=== PATIENT | female | born 1985 | race Caucasian/White ===

== ENCOUNTER 2017-10-07 06:53 | Day surgery (SDC) | payer MEDICAID, SELFPAY ==
[2017-10-02 11:18] LABS: Hematocrit 41.6 % (37-47); Hemoglobin 13.5 g/dl (12.0-15.0); Mean Corp Hgb Conc 32.5 g/gl (32-36); Mean Corpuscular Hgb 30.4 pg (27.0-32.0); Mean Corpuscular Volume 93.7 fL (81-99); Platelet Count 234 K/mm3 (150-450); RBC Distribution Width CV 12.8 % (11.6-14.6); RBC Distribution Width SD 43.7 fl (35.1-43.9); Red Blood Count 4.44 M/mm3 (4.2-5.4); White Blood Count 5.7 K/mm3 (4.4-11.0)
[2017-10-02 11:21] LABS: Scan Indicated on CBC? Y/N NO
[2017-10-02 11:28] LABS: Prothrombin Time (Protime)PT. 13.5 SECONDS (11.7-14.9)
[2017-10-02 11:29] LABS: Partial Thromboplast Time 28.7 Seconds (24.1-36.2)
[2017-10-02 12:23] LABS: Pregnancy, Serum, hCG Quali. NEGATIVE Negative (0-9 Nonpreg)
--- NOTE | 2017-10-06 17:16 | HP.PCM_ITS ---
History and Physical Date of Admission: 10/07/17 Surgical History and Physical Kelly Rodriguez, a 31 year old female 3 0 1 0 3, presents for L/S BTO with filsche clips and distal bilateral salpingectomy on October 07, 2017 at 8;30. -- Desires Permanent Sterilization -- She has considered this form of control for quite some time. MEDICATIONS HISTORY: Patient is also takin. No Meds ALLERGIES: NKA Infections - chicken pox Illnesses - ADHD, anxiety/depression Accidents - no injuries of consequence Hospitalizations - Childbirth Review of Systems: GENERAL - Denies fever, or chills SKIN - Denies skin changes EYES - Denies visual changes EARS - Denies difficulty hearing NOSE - Denies nasal congestion or bleeding MOUTH - Denies sore throat or difficulty swallowing NECK - Denies pain or swelling RESPIRATORY - Denies shortness of breath or wheezing CARDIOVASCULAR - Denies palpitations or chest pain GASTROINTESTINAL - Denies nausea, vomiting, diarrhea, constipation GENITOURINARY - Denies dysuria, frequency of urination, incontinence of urine MUSCULOSKELETAL - Denies joint or muscle pain NEUROLOGICAL - Denies localized numbness or weakness PSYCHIATRIC - Denies depression or anxiety ENDOCRINE - Denies heat or cold intolerance, weight loss or gain HEMATO-IMMUNOLOGIC - Denies excesive bleeding with cuts SOCIAL HISTORY: Alcohol Use - denies drinking Smoking - used to smoke but quit and quit 2014 Diet - no special diet Lifestyle - single and lives with FOB Exercise - active work Seat Belt Use - always 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 Sister: Breast CA. MENSTRUAL HISTORY: LMP Known?- DefiniteAmount/Duration - 3-4 days, Regularity - Regular, Frequency - 28 days, LMP - 09/23/17, Age Onset Menarche - 14 PAST PREGNANCIES: Total Pregnancies - 4; Full Term Pregnancies - 3; Premature - 0; Abortions, Induced - 1; Abortions, Spontaneous - 0; Ectopics - 0; Multiple Births - 0; Living Children - 3 SURGICAL HISTORY: 1. 01/09/2010 gallbladder PHYSICAL EXAM BP- 106/68 Sitting, Right arm, regular cuff Weight- 134.68766 lbs Height- 66.00 inch BMI:21.67 CONSTITUTIONAL - NAD, well nourished, and well developed SKIN - No rash, lesions, or ulcers HEENT - Normocephalic, PERRLA, EOMI LUNGS - CTA x2 without wheezes, crackles or rales CARDIAC - Regular rate and rhythm without rubs, murmurs, or gallops ABDOMEN - Without hepatosplenomegaly, distention, masses, rebound, or guarding; normal bowel sounds; no hernias EXTREMITIES - No edema or calf tenderness NEUROLOGICAL - Cranial nerves II-XII grossly intact PSYCHIATRIC - A and O to time, place, person, mood and affect External Genitial Vagina - non-tender without lesions and Multiple lesions of vulva c/w HSV; culture done Urethra/Urethral Meatus - non-tender Bladder - non-tender Vagina - vaginal laguerre are pink and moist without loss of rugae and no evidence of atropy Cervix - without cervical motion tenderness and has normal size and features without evident lesions Uterus - multiparous size 6 cm & wt 75-125 g and unable to palpate fundus Adnexa - clear without massess or tenderness Pap - deferred and GC/Chlamydia cultures done ASSESSMENT/PLAN: 1. General Counseling On Initiation Of Other Contraceptive Measures Discussed permanent sterilization options including LST versus ESSURE. Desires L/S tubal. Plan BTO with filsche clips and distal bilateral salpingectomy. Discussed RBAs and all questions answered.
[2017-10-07 07:10] VITALS: BP 114/76; PULSE 74; RESP 16; TEMP 36.9; O2SAT 100; BMI 25.0
[2017-10-07 07:14] LABS: Internal QC Validated? YES +Cl - CLEAR BKGD; Pregnancy, Urine Negative Negative
--- NOTE | 2017-10-07 08:01 | PCM.OP.BLANK ---
Operative Report Date of Procedure: 10/07/17 Surgeon: Edwin Jurado MD, FACOG Tank [employer] Gauger: TOMASZ Cuenca Anesthesia: Michael Abbott MD Type of Anesthesia: General Endotracheal Pre-Op Diagnosis: Desires Permanent Sterilization Postoperative Diagnosis: Desires Permanent sterilization Procedure: Bilateral Tubal Occlusion With Filshie Clips and Bilateral Distal Salpingectomy Findings: 8 cm uterus with normal appearing fallopian tubes and ovaries Indications: This is a 31 year old patient who has the above diagnosis. She has considered sterilization for quite some time. She is aware of the permanent nature of the procedure, the failure rate of 1-2%, and the availability of other nonpermanent control options. All questions were answered to consider the patient well-informed. Procedure: The patient was taken to the operating room where after induction of general anesthesia, she was placed in the dorsolithotomy position and prepped and draped in the usual sterile fashion. The bladder was drained of approximately 50 cc of clear yellow urine with a catheter. Attention was turned toward the laparoscopic portion of the procedure. Approximately 13 cc of half percent ropivacaine was injected subumbilically, suprapubically and midway between. A 5 mm bladeless trocar was placed subumbilically and intraperitoneal placement confirmed. After CO2 insufflation was complete, a 7/8 mm bladeless trocar was introduced suprapubically. The above findings were noted. An alligator grasper port was then placed midway between these 2 ports for tubal manipulation. Each fallopian tube was identified to its fimbriated end and an Enseal device was used to divide the mesosalpinx leaving approximately 1 cm stump of fallopian tube on each side. Filshie clips were placed on the stump of each fallopian tube. It was necessary to place a second Filshie clip on the left tube due to incomplete occlusion by the first Filshie clip. The peritoneal cavity and upper abdomen were examined and noted to be normal. Photographs were taken. Laparoscopic instruments with as much CO2 gas as possible were removed and incisions were closed with interrupted 4-0 Monocryl suture. Steri-Strips placed across the incision. Patient tolerated procedure well was taken to recovery room in satisfactory condition. Sponge instrument and needle counts were all reportedly correct. Estimated blood loss for the case was minimal. Specimens to pathology was bilateral tubes.
--- NOTE | 2017-10-07 08:01 | PCM.DC.TUB ---
Discharge Diet: No Restrictions Discharge Activity: Return to Normal Activity, May Drive - when you are no longer taking pain/narcotic medicines., May Shower, May Take a Tub Bath - in 7 days. May resume sexual activity in: 2 weeks Additional Activity Instructions:: Ambulate often the next week after surgery. Nothing in the vagina for 5 days. Call your doctor if your incision/area has: Continuous Slow Oozing, Sudden Increased Bleeding, Increased Pain/ Swelling, Increased Redness, Foul Smelling Discharge Call your doctor if you observe: Fever of 101 or Higher, Inability to urinate, Inability to have a bowel movement, Using more than one pad per hour Allergies/Adverse Reactions: Allergies No Known Allergies Allergy (Verified 09/30/17 11:10) Medications to take at Discharge Hydrocodone/Acetaminophen [Prospect 5-325 Tablet] 1 ea PO Q6H PRN PRN 7 Days #10 tab 10/07/17 The following prescriptions were given: Hydrocodone/Acetaminophen [Prospect 5-325 Tablet] 1 ea PO Q6H PRN PRN 7 Days #10 tab PRN Reason: Severe Pain (-12/18) Primary Care Physician: Care Physician,No Primary [Primary Care Provider] - Test Results: Test results from this visit will be discussed in further detail at your follow-up appointment, if applicable. Please Follow Up With: Edwin Jurado MD - [phone] When: 2-3 Weeks
--- NOTE | 2017-10-07 08:30 | FALS_PTH ---
PATIENT: JETHRO ANTOINE LOC: [facility] – [place] U#:[id number] AGE/SX: 31/F ROOM: RE10/07/[address]: Dr. Edwin Jurado MD : 1985 BED: DIS: 10/07/2017 SPEC #: [id number] RECD: 10/07/17 09:11 STATUS: CANDE GRAEME #: [id number] DAVION: 10/07/17 08:[address]: Edwin Jurado DEPT: SURGICAL PATHOLOGY RECD BY: Nicholas Valladares ENTERED: 10/07/17 09:49 SP TYPE: FALL TUBES OTHR DR: No Primary Care Phys Tissues: Fallopian tube Procedures: Surgery Specimen Level II HEADER OPERATION: laparoscopic, bilateral tubal occlusion, Filshie clips PRE-OP DIAGNOSIS: Desired sterilization TISSUE SUBMITTED: Bilateral fallopian tubes MICROSCOPIC DIAGNOSIS Bilateral fallopian tubes, salpingectomy: Bilateral fallopian tubes including fimbrial ends, no pathologic diagnosis. SJ:joel 10/08/17 MICROSCOPIC DESCRIPTION Slides are reviewed. GROSS DESCRIPTION Received is one container labeled with the patient's name and designated bilateral fallopian tubes. The specimen consists of bilateral fallopian tubes including fimbrial ends. One of the fallopian tubes is intact and measures 5.5 cm in length and up to 1 cm in diameter. The fimbrial end is identified. Sections reveal unremarkable cut surfaces. The second fallopian is received in multiple pieces. The two tubular pieces consisting of proximal end measures 3 cm in length and 0.5 cm in diameter and 2 cm in length and 0.6 cm in diameter. The fimbrial end measures 2 x 1.5 x 0.5 cm. Also present in the container is a piece of dewitt soft tissue measuring 2 x 0.5 x 0.3 cm. Cordwainer sections are submitted in two cassettes as follows: 1 ? intact fallopian tube, 2 ? second fallopian tube received in multiple pieces. / SJ:joel 10/07/17 TC:4 CPT: 49096 x2
[2017-10-07 08:48] VITALS: BP 113/82; BP 114/76; PULSE 68; RESP 16; TEMP 36.5; O2SAT 100
[2017-10-07 09:00] VITALS: BP 108/73; BP 114/76; PULSE 63; RESP 16; O2SAT 94
[2017-10-07 09:15] VITALS: BP 112/80; BP 114/76; PULSE 59; RESP 16; O2SAT 97
[2017-10-07 09:30] VITALS: BP 112/77; BP 114/76; PULSE 60; RESP 16; TEMP 36.8; O2SAT 97
[2017-10-07] MEDS: HYDROcodone Bitartrate/Apap 5/325 Tablet PO (10:16)
[2017-10-07 10:51] VITALS: BP 114/76; BP 94/57; PULSE 61; RESP 16; TEMP 36.9; O2SAT 96
== END 2017-10-07 10:54 | disposition home or self-care (01) ==
LOC: SDC 06:54 → AC 06:54
PROVIDERS: Anesthesiology; Visit Provider Obstetrics & Gynecology
PROC: (CPT 58671; principal; 2017-10-07 08:15)
DX: Z30.2 Encounter for sterilization (principal); Z87.891 Personal history of nicotine dependence; Z76.89 Persons encountering health services in other specified circumstances
CPT/HCPCS: 58661; 36415; 81025; 84703; 85027; 85610; 85730; 86850; 86900; 88302; J7120; C1760; J2405

== ENCOUNTER 2017-11-11 06:26 | Emergency (ER) | payer SELFPAY ==
[2017-11-11 06:26] VITALS: BP 133/99; PULSE 107; RESP 20; TEMP 36.5; O2SAT 99; BMI 25.2
--- NOTE | 2017-11-11 06:35 | ED.VISSUMM ---
- ER Visit Summary Date of Service: 11/11/17 Chief Complaint: Cough, dyspnea, wheeze History of Present Illness: The patient is a 31 F 1 week history of progressive cough and dyspnea. Wheezing. Tobacco history. No asthma or COPD history. No recent travel, surgery, or immobilizations. No history of PE or DVT. Sick contacts or children similar symptoms. States use her child's nebulizer with improved wheezing 30 minutes prior to arrival. Concerned due to worsening symptoms. No chest pains. Physical Examination: General: Alert and oriented ?3, no acute distress HEENT: Normocephalic, atraumatic. Moist mucosa membranes Neck: supple, nontender. Cardiovascular: Regular rate 96 and rhythm, no murmurs Respiratory: Normal breath sounds, symmetric, no distress Abdomen: Soft, nontender, nondistended Extremities: Nontender, no edema, pulses intact ?4 Neuro: no focal neurological deficits. Test Results: [] Emergency Department Course and Treatment: Patient nontoxic, no respiratory distress. Heart was 107 in triage have a repeat by myself is 96. She has no PE risk factors. Stab upper respiratory symptoms with sick contacts, discussed likely bronchitis symptoms. Concerned of pneumonia. Discussed empiric therapy with Zithromax for which she agreed. Prescription for inhaler as needed. Follow-up given as an outpatient. Signs and symptoms discussed to return. Treatment Plan: [] Disposition: Discharge Impression: 1. Acute bronchitis This note was generated with Innolight dictation software. It may contain incorrect words, spelling, and punctuation that were not noted in review of the chart prior to signing ED Disposition - Plan for ED Patient: Disposition: Home or Assisted Living Chief Complaint: Shortness of Breath Diagnosis: Bronchitis Instructions: ED Upper Resp Infec Abx Tx Prescriptions: Albuterol Inhaler [Ventolin Hfa] 1 puff INHALATION Q4H PRN PRN #1 inhaler PRN Reason: Wheezing Azithromycin [Zithromax] 250 mg PO DAILY #4 tablet Referrals: Care Physician,No Primary [Primary Care Provider] - Alex Wade MD [NON-STAFF] - 5-7 Days
[2017-11-11] MEDS: Azithromycin 250 MG Tablet 500 MG PO (06:47)
--- NOTE | 2017-11-12 11:07 | CM.ED ---
ED CALLBACK: Follow-up call placed to patient with no answer. Voicemail left with return contact information.
== END 2017-11-11 07:11 | disposition home or self-care (01) ==
LOC: ED 07:05
PROVIDERS: Emergency Provider Emergency Medicine
DX: J20.9 Acute bronchitis, unspecified (principal); Z72.0 Tobacco use
CPT/HCPCS: 99282

== ENCOUNTER 2017-11-13 17:48 | Emergency (ER) | payer SELFPAY ==
[2017-11-13] VITALS (7 sets, daily range): BP systolic 105–143; BP diastolic 79–83; PULSE 88–111; RESP 15–21; TEMP 37.4; O2SAT 96–100; BMI 25.9
--- NOTE | 2017-11-13 18:06 | EKG12_ITS ---
Test Reason : SPB Blood Pressure : / mmHG Vent. Rate : 092 BPM Atrial Rate : 092 BPM P-R Int : 096 ms QRS Dur : 096 ms QT Int : 360 ms P-R-T Axes : 055 068 037 degrees QTc Int : 445 ms Sinus rhythm with short SC Incomplete right bundle branch block Borderline ECG Confirmed by VICTOR MANUEL KATE ([id number]), editor book ANDRY RENAE ([id number]) on 11/19/2017 1:39:33 PM Referred By: HALEY Confirmed By:VICTOR MANUEL KATE
[2017-11-13] MEDS: Ipratropium/Albuterol Sulfate 3 ML AMPUL.NEB INHALATION (18:21)
[2017-11-13] MEDS: Ondansetron 4 MG/2 ML Vial IV (18:31)
[2017-11-13] MEDS: MethylPREDNISolone 125 MG/2 ML Vial IV (18:31)
[2017-11-13] MEDS: 0.9% Normal Saline 1,000 ML 150 ML IV (18:33)
[2017-11-13 18:54] LABS: Hematocrit 41.8 % (37-47); Hemoglobin 13.8 g/dl (12.0-15.0); Mean Corpuscular Hgb 30.1 pg (27.0-32.0); Mean Corpuscular Volume 91.3 fL (81-99); POSITIVE COUNT NO; POSITIVE DIFFERENTIAL NO; POSITIVE MORPHOLOGY NO; Platelet Count 172 K/mm3 (150-450); RBC Distribution Width CV 12.7 % (11.6-14.6); RBC Distribution Width SD 42.6 fl (35.1-43.9); Red Blood Count 4.58 M/mm3 (4.2-5.4); White Blood Count 9.7 K/mm3 (4.4-11.0)
[2017-11-13 18:55] LABS: Absolute Lymphocyte Count 0.97 X10^3/ul (0.83-4.51); Absolute Neutrophil Count 8.1 X10^3/uL (2.0-7.7); Basophil# 0.02 X10^3/uL; Basophil% 0.2 % (0-1); Eosinophil# 0.06 X10^3/uL; Eosinophils% 0.6 % (0-5); Lymphocyte # 0.97 X10^3/ul (4.0); Monocyte# 0.59 X10^3/uL; Monocyte% 6.1 % (0-10); Neutrophil # 8.06 X10^3/uL (2.7-7.7)
[2017-11-13 18:57] LABS: Anion Gap 9 (5-15); BUN 11 mg/dL (7-18); BUN/Creat Ratio 15.7 RATIO (10-20); Calcium,Total 9.3 mg/dL (8.5-10.1); Chloride 97 mmol/L (98-107); EST Glomerular Filtration Rate 104 mL/min (>60); Est Glom Filt Rate - Afr Amer 126 mL/min (>60); Estimated Creatinine Clearance 92.94 ml/min; Glucose 111 mg/dL (74-106); Potassium 3.3 mmol/L (3.5-5.1); Sodium Level 133 mmol/L (136-145)
[2017-11-13] MEDS: Albuterol 2.5 MG/3 ML VIAL.NEB. INHALATION (20:37)
--- NOTE | 2017-11-13 21:07 | ED.VISSUMM ---
- ER Visit Summary Date of Service: 11/13/17 Chief Complaint: Short of breath, cough History of Present Illness: The patient is a 31 F with 10 day history of cough and congestion with shortness of breath. She has been running a fever over the past 5 days. She was seen in the ER on the third. She was started on Zithromax. Patient states she still has not noted significant improvement in her breathing. She still has fever that was up to 103 today. She also noted some nausea and vomiting that was new today. Last dose of ibuprofen was approximately 3 hours prior to evaluation here. History significant for ADHD. Patient is a smoker. She has been using her child's nebulizer treatment at home. Physical Examination: Blood pressure is 143/79, temperature 99.4, heart rate 111, respiratory rate 20, pulse ox 100% on room air. Head neck examination unremarkable. Heart is regular rate and rhythm with heart rate at 100 at the time of my exam. Lung sounds with mild wheezing in the left base. Abdomen is soft nontender. Test Results: Two-view chest x-ray shows right lower lobe infiltrate. EKG is sinus at 92 with no sign of acute ischemia. CBC was normal white count with 83% neutrophils. Chemistry studies reveal a sodium of 133, potassium 3.3. Cultures were sent. Emergency Department Course and Treatment: Patient was initially given Solu-Medrol, DuoNeb treatment, and Zofran. On repeat evaluation she was feeling overall improved, but had started to note some tightness in her lungs again. She is given an additional albuterol treatment. At this time respiratory rate is improved. O2 sats have remained in the mid to upper 90s. Lung sounds reveal improved air movement throughout. She be treated with Levaquin at home along with prednisone and Zofran. If she worsens in any way she is to return for potential admission and IV antibiotics. Treatment Plan: [] Disposition: Discharge Impression: Pneumonia This note was generated with Zigmo dictation software. It may contain incorrect words, spelling, and punctuation that were not noted in review of the chart prior to signing ED Disposition - Plan for ED Patient: Chief Complaint: Shortness of Breath Referrals: Care Physician,No Primary [Primary Care Provider] -
--- NOTE | 2017-11-13 21:10 | ED.DCSUM_ITS ---
- ER Visit Summary Date of Service: 11/13/17 Chief Complaint: Short of breath, cough History of Present Illness: The patient is a 31 F with 10 day history of cough and congestion with shortness of breath. She has been running a fever over the past 5 days. She was seen in the ER on the third. She was started on Zithromax. Patient states she still has not noted significant improvement in her breathing. She still has fever that was up to 103 today. She also noted some nausea and vomiting that was new today. Last dose of ibuprofen was approximately 3 hours prior to evaluation here. History significant for ADHD. Patient is a smoker. She has been using her child's nebulizer treatment at home. Physical Examination: Blood pressure is 143/79, temperature 99.4, heart rate 111 , respiratory rate 20, pulse ox 100% on room air. Head neck examination unremarkable. Heart is regular rate and rhythm with heart rate at 100 at the time of my exam. Lung sounds with mild wheezing in the left base. Abdomen is soft nontender. Test Results: Two-view chest x-ray shows right lower lobe infiltrate. EKG is sinus at 92 with no sign of acute ischemia. CBC was normal white count with 83 % neutrophils. Chemistry studies reveal a sodium of 133, potassium 3.3. Cultures were sent. Emergency Department Course and Treatment: Patient was initially given Solu- Medrol, DuoNeb treatment, and Zofran. On repeat evaluation she was feeling overall improved, but had started to note some tightness in her lungs again. She is given an additional albuterol treatment. At this time respiratory rate is improved. O2 sats have remained in the mid to upper 90s. Lung sounds reveal improved air movement throughout. She be treated with Levaquin at home along with prednisone and Zofran. If she worsens in any way she is to return for potential admission and IV antibiotics. Treatment Plan: [] Disposition: Discharge Impression: Pneumonia This note was generated with Xelor [employer] dictation software. It may contain incorrect words, spelling, and punctuation that were not noted in review of the chart prior to signing ED Disposition - Plan for ED Patient: Chief Complaint: Shortness of Breath Referrals: Care Physician,No Primary [Primary Care Provider] -
--- NOTE | 2017-11-13 21:10 | ED.DEP ---
ED Disposition - Plan for ED Patient: Disposition: Home or Assisted Living Chief Complaint: Shortness of Breath Instructions: ED Pneumonia Adult Prescriptions: proMETHazine tablet [Phenergan] 0.5 - 1 tab PO Q6H PRN PRN #10 tablet PRN Reason: Nausea Levofloxacin [Levaquin] 750 mg PO DAILY #4 tablet Prednisone [Deltasone] 40 mg PO DAILY #10 tablet Referrals: Kasandra Lovelace MD [COURTESY STAFF PHYSICIAN] - As Needed
[2017-11-13] MEDS: levoFLOXacin 750 MG Tablet PO (21:11)
--- NOTE | 2017-11-13 21:21 | ED.RN ---
PT GIVEN WRITTEN AND VERBAL DISCHARGE INSTRUCTIONS AND VERBALIZES UNDERSTANDING. IV D/C COVERED WITH 2X2 GAUZE DRESSING. PT DRESSES SELF AND AMBULATES OUT OF DEPT BY SELF.
== END 2017-11-13 21:22 | disposition home or self-care (01) ==
PROVIDERS: Emergency Provider Emergency Medicine
DX: J18.9 Pneumonia, unspecified organism (principal); F17.200 Nicotine dependence, unspecified, uncomplicated
CPT/HCPCS: 71046; 80048; 85025; 87040; 93005; 94640; 96361; 96374; 96375; 99284; J7030; J7040; A4216; J2405

== ENCOUNTER 2018-08-12 11:19 | Observation (INO) | payer MEDICAID, SELFPAY ==
[2018-08-12] VITALS (9 sets, daily range): BP systolic 97–139; BP diastolic 47–80; PULSE 48–72; RESP 16–19; TEMP 36.3–37; O2SAT 99–100; BMI 23.8; BMI 25.1
[2018-08-12] MEDS: hydrOXYzine PAM 25 MG Capsule PO (12:05)
[2018-08-12] MEDS: proMETHazine 25 MG/ML Syringe 12.5 MG IV (12:06)
[2018-08-12] MEDS: 0.9% Normal Saline 1,000 ML 1000 ML IV (12:06)
--- NOTE | 2018-08-12 12:17 | ED.VISSUMM ---
- ER Visit Summary Date of Service: 08/12/18 Chief Complaint: [Request for detox] History of Present Illness: The patient is a 32 F [presents the emergency department request for detox from narcotics and benzodiazepines. Patient states that she last used about 2 days ago. Patient does admit to heroin as well as methamphetamines. Patient complaining of sweats and nausea and diarrhea. Patient feels very anxious and restless. She denies recent illness otherwise.] Physical Examination: [HEENT-PERRLA, EOMI. Cranial nerves II through XII grossly intact. TMs clear. Mucous membranes moist. No adenopathy. Cardiovascular-regular rate and rhythm without murmur or ectopy Lungs-clear to auscultation, chest wall stable without crepitus or subcu emphysema Abdomen-normoactive bowel sounds, soft, nontender, no rebound or rigidity, no peritoneal signs. Extremities-intact ?4, normal range of motion, normal pulses, atraumatic] Test Results: [hCG serum and urine tox screen ordered and pending.] Emergency Department Course and Treatment: Patient was medicated with Vistaril and Phenergan. She was ordered a liter normal same fluid bolus.] Treatment Plan: [Patient was evaluated by flako bosch and she meets criteria for admission at this point. Will discuss case with hospitalist for admission.] Disposition: Admit] Impression: [Narcotic withdrawal Benzodiazepine withdrawal] This note was generated with tvCompass dictation software. It may contain incorrect words, spelling, and punctuation that were not noted in review of the chart prior to signing ED Disposition - Plan for ED Patient: Referrals: Care Physician,No Primary [Primary Care Provider] -
[2018-08-12 12:24] LABS: Internal QC Validated? YES +Cl - CLEAR BKGD; Pregnancy, Serum, hCG Quali. NEGATIVE Negative
[2018-08-12 12:28] LABS: Amphetamine Urine VISTA POSITIVE (<1000 ng/mL); Barbiturate Urine VISTA NEGATIVE (< 200 ng/mL); Benzodiazepine Urine VISTA POSITIVE (< 200 ng/mL); Cocaine Urine VISTA POSITIVE (< 300 ng/mL); Ecstacy Urine VISTA POSITIVE (< 500 ng/mL); Methadone Urine VISTA NEGATIVE (< 300 ng/mL); PCP Urine VISTA NEGATIVE (< 25 ng/mL); THC Urine VISTA NEGATIVE (< 50 ng/mL); Vista UDS pH Range 5
[2018-08-12] MEDS: Ibuprofen 600 MG Tablet PO (12:46)
--- NOTE | 2018-08-12 12:59 | HP.PCM_ITS ---
Problem List (1) Opioid withdrawal delirium, acute, hyperactive Status: Acute (2) Tobacco dependence Status: Chronic (3) ADHD (attention deficit hyperactivity disorder) Status: Chronic (4) Back pain Status: Chronic History of Present Illness Date of Admission: 08/12/18 Chief Complaint: Restlessness The patient is a 32 year old F with past medical history segment for ADHD, depression with anxiety, polysubstance abuse including oral narcotics, methamphetamine who presents with restlessness. Patient reports daily use of p.o. codon as well as Xanax. He also admitted to amphetamine use. Patient apparently called [facility] wanting to go to medical stabilization. Patient was referred to the emergency department from where patient was admitted to a regular nursing floor for medical stabilization. On further questioning patient admitted to abdominal cramps. Nausea but no vomiting. Also did complain of extreme anxiety as well as restless legs. 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 Dyspnea Respiratory: Denies: Cough, Shortness of breath at rest, Shortness of breath upon exertion, Sputum production Gastrointestinal: Reports: Abdominal Pain, Nausea Genitourinary: Denies: Dysuria, Frequency, Hematuria, Urgency Gynecological: Denies: Breast symptoms Musculoskeletal: Reports: Leg Pain, Muscle pain Skin: Denies: Rash Neurological: Denies: Balance problems, Seizures Psychiatric: Reports: Anxiety, Depression VTE Information - Inpt Only VTE Present on Admission: No Reason prophylaxis not ordered:: Treatment Not Indicated Patient Problems: Active and Suspected Problems Opioid withdrawal delirium, acute, hyperactive (Acute) Objective: GENERAL: Appears restless HEENT: Atraumatic; moist oral mucosa EYES; Anicteric, Normal Conjunctiva NECK; supple, normal thyroid, RESPIRATORY: Diminished to auscultation bilaterally, CARDIOVASCULAR: Regular S1 S2, GI: soft, non-tender, normoactive bowel sounds, : No Renal angle tenderness; EXTREMITIES: No edema, no clubbing, . MUSCULOSKELETAL: No Joint Tenderness; NEURO: Awake; no lateralizing signs. SKIN: No Rash PSYCH; anxious - Physical Exam Vital Signs Temp Pulse Resp BP Pulse Ox 98.6 F 65 19 H 139/74 H 99 08/12/18 11:20 08/12/18 11:20 08/12/18 11:20 08/12/18 11:20 08/12/18 11:20 Weight: 58.967 kg Body Mass Index (BMI) 23.8 Laboratory Tests Past 24 Hrs 08/12/18 08/12/18 12:02 12:02 Serum , Qual NEGATIVE Urine Opiates Screen POSITIVE H Urine Methadone Screen NEGATIVE Ur Barbiturates Screen NEGATIVE Ur Phencyclidine Scrn NEGATIVE Ur Amphetamines Screen POSITIVE H U Methamphetamin-MDMA POSITIVE H U Benzodiazepines Scrn POSITIVE H Urine Cocaine Screen POSITIVE H U Cannabinoids Screen NEGATIVE Ur Drug Screen Comment Assessment/Plan All Active Problems Opioid withdrawal delirium, acute, hyperactive (Acute) Sepsis (Acute) Acute pyelonephritis (Acute) Acute cystitis (Acute) She is a 32-year-old lady with history of opioid dependence presented with acute opiate withdrawal 1. Acute opiate withdrawal patient has significant symptoms. Patient has been admitted to regular nursing floor for medical stabilization using Subutex as well as tapering dose of Librium 2. Chronic opioid abuse counseled on cessation 3. Chronic benzo abuse patient was placed on Librium taper 4. ADHD 5. Depression with anxiety 6. Tobacco dependence counseled on cessation, offered nicotine patch for tobacco cravings 7. DVT prophylaxis low risk did encourage early ambulation Code Visit Inpatient E&M: 25609 Init Hosp L3
[2018-08-12] MEDS: Lactated Ringers 1,000 ML 125 ML IV (13:34)
[2018-08-12] MEDS: chlordiazePOXIDE 25 MG Capsule PO ×2 (13:35→20:13)
[2018-08-12] MEDS: cloNIDine HCl 0.1 MG Tablet PO (13:36)
[2018-08-12] MEDS: Pramipexole Di-HCl 0.25 MG Tablet PO (13:36)
[2018-08-12] MEDS: Loperamide 2 MG Capsule PO (13:36)
[2018-08-12 13:37] LABS: Absolute Lymphocyte Count 0.99 X10^3/ul (0.83-4.51); Absolute Neutrophil Count 7.4 X10^3/uL (2.0-7.7); Basophil# 0.02 X10^3/uL; Basophil% 0.2 % (0-1); Eosinophil# 0.01 X10^3/uL; Eosinophils% 0.1 % (0-5); Hematocrit 39.4 % (37-47); Hemoglobin 12.9 g/dl (12.0-15.0); Lymphocyte # 0.99 X10^3/ul (4.0); Lymphocyte % 11.4 % (19-41); Mean Corp Hgb Conc 32.7 g/gl (32-36); Mean Corpuscular Hgb 28.3 pg (27.0-32.0); Mean Corpuscular Volume 86.4 fL (81-99); Mean Platelet Vol. 9.8 fl (6.2-12.0); Monocyte# 0.29 X10^3/uL; Monocyte% 3.3 % (0-10); Neutrophil # 7.38 X10^3/uL (2.7-7.7); Neutrophil % 84.9 % (47-70); POSITIVE COUNT NO; POSITIVE DIFFERENTIAL NO; POSITIVE MORPHOLOGY NO; Platelet Count 276 K/mm3 (150-450); RBC Distribution Width CV 13.8 % (11.6-14.6); RBC Distribution Width SD 42.6 fl (35.1-43.9); Red Blood Count 4.56 M/mm3 (4.2-5.4); White Blood Count 8.7 K/mm3 (4.4-11.0)
[2018-08-12] MEDS: Buprenorphine HCl 2 MG TAB.SUBL SL ×2 (13:37→22:08)
[2018-08-12 13:56] LABS: ALB/GLOB Ratio 1.1 RATIO (0.9-2.4); AST(SGOT) 52 U/L (15-37); Alanine Aminotransfer ALT/SGPT 19 U/L (13-56); Albumin, Serum 3.7 g/dL (3.2-5.0); Alkaline Phosphatase 89 U/L (45-117); Anion Gap 7 (5-15); BUN 10 mg/dL (7-18); BUN/Creat Ratio 16.2 RATIO (10-20); Calcium,Total 8.3 mg/dL (8.5-10.1); Chloride 109 mmol/L (98-107); Creatinine, Serum 0.62 mg/dL (0.55-1.02); EST Glomerular Filtration Rate 120 mL/min (>60); Est Glom Filt Rate - Afr Amer 145 mL/min (>60); Estimated Creatinine Clearance 103.98 ml/min; Globulin 3.3 g/dL (2.2-4.2); Glucose 100 mg/dL (74-106); Lipase 86 U/L (73-393); Potassium 3.7 mmol/L (3.5-5.1); Sodium Level 141 mmol/L (136-145)
[2018-08-12 13:58] LABS: Internal QC Validated? YES +Cl - CLEAR BKGD; Pregnancy, Serum, hCG Quali. NEGATIVE Negative
[2018-08-12] MEDS: Methocarbamol 750 MG Tablet PO ×2 (14:00→22:08)
[2018-08-12] MEDS: Dicyclomine 10 MG Capsule 20 MG PO (18:27)
[2018-08-12] MEDS: Ondansetron ODT 4 MG Tablet PO (18:28)
[2018-08-12] MEDS: Acetaminophen 500 MG Tablet PO (18:28)
[2018-08-12] MEDS: hydrOXYzine PAM 25 MG Capsule 50 MG PO (18:28)
[2018-08-12] MEDS: Mag Hydrox/Al Hydrox/Simeth 30 ML UDC PO (20:39)
[2018-08-12] MEDS: Famotidine 20 MG Tablet PO (20:41)
[2018-08-12] MEDS: traZODone 50 MG Tablet PO (22:08)
[2018-08-12] MEDS: 0.9% NaCl Peripheral Flush Adult/Peds IV (22:17)
[2018-08-13] VITALS (11 sets, daily range): BP systolic 94–102; BP diastolic 54–65; PULSE 62–82; RESP 16–18; TEMP 36.2–36.8; O2SAT 98–100
[2018-08-13] MEDS: hydrOXYzine PAM 25 MG Capsule 50 MG PO ×3 (00:47→21:22)
[2018-08-13] MEDS: chlordiazePOXIDE 25 MG Capsule PO ×3 (01:55→16:31)
[2018-08-13] MEDS: Pramipexole Di-HCl 0.25 MG Tablet PO ×2 (01:55→14:23)
[2018-08-13] MEDS: Buprenorphine HCl 2 MG TAB.SUBL SL ×3 (05:59→21:21)
[2018-08-13] MEDS: Methocarbamol 750 MG Tablet PO ×3 (05:59→21:21)
--- NOTE | 2018-08-13 08:19 | PN_ITS ---
Patient Problems: Active and Suspected Problems Opioid withdrawal delirium, acute, hyperactive (Acute) Subjective: Patient is a 32-year-old lady with history of opioid dependence presented with acute opiate withdrawal admitted to regular nursing floor where patient is undergoing medical stabilization. Patient did experience significant symptoms during the evening with pain in both lower extremities as well as significant restless legs. She requested for some pain medications but was advised she could not have any and she had to stick with the program Objective: GENERAL: Appears restless HEENT: Atraumatic; moist oral mucosa EYES; Anicteric, Normal Conjunctiva NECK; supple, normal thyroid, RESPIRATORY: Diminished to auscultation bilaterally, CARDIOVASCULAR: Regular S1 S2, GI: soft, non-tender, normoactive bowel sounds, : No Renal angle tenderness; EXTREMITIES: No edema, no clubbing, . MUSCULOSKELETAL: No Joint Tenderness; NEURO: Awake; no lateralizing signs. SKIN: No Rash PSYCH; anxious Vitals/I&O's: Vital Signs Temp Pulse Resp BP Pulse Ox 97.6 F L 71 16 94/55 L 100 08/13/18 05:57 08/13/18 05:57 08/13/18 05:57 08/13/18 05:57 08/13/18 05:54 Oxygen Delivery Method Room Air Weight: 62.3 kg Body Mass Index (BMI) 25.1 Intake and Output for Last 24 Hours 08/11/18 08/12/18 08/13/18 23:59 23:59 23:59 Intake Total 1480 / 1480 700 / 700 Balance 1480 / 1480 700 / 700 Laboratory Results 08/12/18 12:02: Urine Opiates Screen POSITIVE H, Urine Methadone Screen NEGATIVE, Ur Barbiturates Screen NEGATIVE, Ur Phencyclidine Scrn NEGATIVE, Ur Amphetamines Screen POSITIVE H, U Methamphetamin-MDMA POSITIVE H, U Benzodiazepines Scrn POSITIVE H, Urine Cocaine Screen POSITIVE H, U Cannabinoids Screen NEGATIVE, Ur Drug Screen Comment 08/12/18 12:02: Serum , Qual NEGATIVE 08/12/18 13:29: WBC 8.7, RBC 4.56, Hgb 12.9, Hct 39.4, MCV 86.4, MCH 28.3, MCHC 32.7, RDW 13.8, RDW Differential 42.6, Plt Count 276, MPV 9.8, Immature Gran % (Auto) 0.100, Neut % (Auto) 84.9 H, Lymph % (Auto) 11.4 L, Ocean % (Auto) 3.3, Eos % (Auto) 0.1, Baso % (Auto) 0.2, Absolute Neuts (auto) 7.4, Absolute Lymphs (auto) 0.99, Total Counted Not Reportable 08/12/18 13:29: Sodium 141, Potassium 3.7, Chloride 109 H, Carbon Dioxide 25.0, Anion Gap 7, BUN 10, Creatinine 0.62, Estim Creat Clear Calc 103.98, Est GFR (MDRD) Af Amer 145, Est GFR (MDRD) Non-Af 120, BUN/Creatinine Ratio 16.2, Glucose 100, Calcium 8.3 L, Total Bilirubin 0.50, AST 52 H, ALT 19, Alkaline Phosphatase 89, Total Protein 7.0, Albumin 3.7, Globulin 3.3, Albumin/Globulin Ratio 1.1, Lipase 86 08/12/18 13:29: Serum , Qual NEGATIVE Current Medications Acetaminophen (Tylenol) 500 mg PO Q4H PRN PRN PRN Reason: Temp > 100.4 F Last Admin: 08/12/18 18:28 Dose: 500 mg Al Hydroxide/Mg Hydroxide (Mylanta Ii) 30 ml PO Q6H PRN PRN PRN Reason: dyspesia Last Admin: 08/12/18 20:39 Dose: 30 ml Bisacodyl (Dulcolax) 10 mg RECTAL DAILY PRN PRN Reason: Constipation Buprenorphine HCl (Buprenorphine Hcl) 4 mg SL Q8H JAY; Taper Stop: 08/15/18 17:59 Last Admin: 08/13/18 05:59 Dose: 4 mg Chlordiazepoxide (Librium) 50 mg PO Q8H JAY; Taper Stop: 08/15/18 15:59 Last Admin: 08/13/18 01:55 Dose: 50 mg Clonidine (Catapres) 0.1 mg PO Q2H PRN PRN PRN Reason: Hot/Cold Sweats or Anxiety Last Admin: 08/12/18 13:36 Dose: 0.1 mg Dicyclomine HCl (Bentyl) 20 mg PO Q6H PRN PRN PRN Reason: Abdomnial Discomfort Last Admin: 08/12/18 18:27 Dose: 20 mg Famotidine (Pepcid) 20 mg PO BID [facility] Last Admin: 08/12/18 20:41 Dose: 20 mg Hydroxyzine HCl (Vistaril Vial) 50 mg IM Q6H PRN PRN PRN Reason: Breakthrough Anxiety Hydroxyzine Pamoate (Vistaril Pamoate Capsule) 50 mg PO Q6H PRN PRN PRN Reason: Mild Anxiety Last Admin: 08/13/18 00:47 Dose: 50 mg Ibuprofen (Motrin) 600 mg PO Q8H PRN PRN PRN Reason: Mild-Moderate Pain (1-5/10) Loperamide HCl (Imodium) 2 - 4 mg PO UD PRN PRN Reason: LOOSE STOOLS Last Admin: 08/12/18 13:36 Dose: 4 mg Methocarbamol (Methocarbamol) 750 mg PO Q6H PRN PRN PRN Reason: Muscle Aches Last Admin: 08/13/18 05:59 Dose: 750 mg Nicotine (Nicoderm Cq (Pbkc)) 21 mg TRANSDERM. DAILY [facility] Last Admin: 08/12/18 20:12 Dose: 21 mg Ondansetron HCl (Zofran Odt) 4 mg PO Q6H PRN PRN PRN Reason: NAUSEA Last Admin: 08/12/18 18:28 Dose: 4 mg Pramipexole Dihydrochloride (Mirapex) 0.25 mg PO Q12H PRN PRN PRN Reason: Restless Legs Last Admin: 08/13/18 01:55 Dose: 0.25 mg Senna (Senokot) 1 tablet PO QHS PRN PRN Reason: Constipation Sodium Chloride () 5 - 15 ml IV UD PRN PRN Reason: SALINE FLUSH Last Admin: 08/12/18 22:17 Dose: 10 ml Trazodone HCl (Desyrel) 50 mg PO QHS JAY Last Admin: 08/12/18 22:08 Dose: 50 mg Medical Necessity - Tobacco Use Smoking Status: Current every day smoker Assessment/Plan All Active Problems Opioid withdrawal delirium, acute, hyperactive (Acute) Sepsis (Acute) Acute pyelonephritis (Acute) Acute cystitis (Acute) Patient is a 32-year-old lady with history of opioid dependence presented with acute opiate withdrawal 1. Acute opiate withdrawal patient has significant symptoms. Patient has been admitted to regular nursing floor for medical stabilization using Subutex as well as tapering dose of Librium 2. Chronic opioid abuse counseled on cessation 3. Chronic benzo abuse patient was placed on Librium taper 4. ADHD currently stable. 5. Depression with anxiety: Instructed to follow-up with PCP for initiation of treatment 6. Tobacco dependence counseled on cessation, offered nicotine patch for tobacco cravings 7. DVT prophylaxis low risk did encourage early ambulation Code Visit Inpatient E&M: 22753 Subs Hosp L3
[2018-08-13] MEDS: Dicyclomine 10 MG Capsule 20 MG PO ×3 (09:27→22:34)
[2018-08-13] MEDS: Ibuprofen 600 MG Tablet PO ×2 (09:27→21:21)
[2018-08-13] MEDS: Ondansetron ODT 4 MG Tablet PO ×2 (09:27→21:27)
[2018-08-13] MEDS: Famotidine 20 MG Tablet PO ×2 (09:32→21:28)
[2018-08-13] MEDS: traZODone 50 MG Tablet PO (21:28)
[2018-08-14 00:26] VITALS: BP 99/60; PULSE 64; RESP 18; TEMP 36.4; O2SAT 99
[2018-08-14 00:27] VITALS: BP 99/60; PULSE 64; RESP 18; TEMP 36.4
[2018-08-14] MEDS: chlordiazePOXIDE 25 MG Capsule PO ×3 (00:28→16:25)
[2018-08-14 06:21] VITALS: BP 98/51; PULSE 64; RESP 16; TEMP 36.6; O2SAT 99
[2018-08-14] MEDS: Buprenorphine HCl 2 MG TAB.SUBL SL ×2 (06:22→18:01)
[2018-08-14] MEDS: Famotidine 20 MG Tablet PO ×2 (08:29→21:13)
[2018-08-14] MEDS: Pramipexole Di-HCl 0.25 MG Tablet PO (08:34)
[2018-08-14] MEDS: Methocarbamol 750 MG Tablet PO ×2 (08:34→16:27)
--- NOTE | 2018-08-14 09:09 | PN_ITS ---
Patient Problems: Active and Suspected Problems Opioid withdrawal delirium, acute, hyperactive (Acute) Subjective: Patient seen symptoms significantly improved including her restless legs Objective: GENERAL: Cooperative HEENT: Atraumatic; moist oral mucosa EYES; Anicteric, Normal Conjunctiva NECK; supple, normal thyroid, RESPIRATORY: Diminished to auscultation bilaterally, CARDIOVASCULAR: Regular S1 S2, GI: soft, non-tender, normoactive bowel sounds, : No Renal angle tenderness; EXTREMITIES: No edema, no clubbing, . MUSCULOSKELETAL: No Joint Tenderness; NEURO: Awake; no lateralizing signs. SKIN: No Rash PSYCH; anxious Vitals/I&O's: Vital Signs Temp Pulse Resp BP Pulse Ox 97.8 F 64 16 98/51 L 99 08/14/18 06:21 08/14/18 06:21 08/14/18 06:21 08/14/18 06:21 08/14/18 06:21 Oxygen Delivery Method Room Air Weight: 62.3 kg Body Mass Index (BMI) 25.1 Intake and Output for Last 24 Hours 08/12/18 08/13/18 08/14/18 23:59 23:59 23:59 Intake Total 1480 / 1480 1300 / 1300 900 / 900 Balance 1480 / 1480 1300 / 1300 900 / 900 Current Medications Acetaminophen (Tylenol) 500 mg PO Q4H PRN PRN PRN Reason: Temp > 100.4 F Last Admin: 08/12/18 18:28 Dose: 500 mg Al Hydroxide/Mg Hydroxide (Mylanta Ii) 30 ml PO Q6H PRN PRN PRN Reason: dyspesia Last Admin: 08/12/18 20:39 Dose: 30 ml Bisacodyl (Dulcolax) 10 mg RECTAL DAILY PRN PRN Reason: Constipation Buprenorphine HCl (Buprenorphine Hcl) 2 mg SL Q12H JAY; Taper Stop: 08/15/18 17:59 Last Admin: 08/14/18 06:22 Dose: 2 mg Chlordiazepoxide (Librium) 50 mg PO Q8H JAY; Taper Stop: 08/15/18 15:59 Last Admin: 08/14/18 08:29 Dose: 50 mg Clonidine (Catapres) 0.1 mg PO Q2H PRN PRN PRN Reason: Hot/Cold Sweats or Anxiety Last Admin: 08/12/18 13:36 Dose: 0.1 mg Dicyclomine HCl (Bentyl) 20 mg PO Q6H PRN PRN PRN Reason: Abdomnial Discomfort Last Admin: 08/13/18 22:34 Dose: 20 mg Famotidine (Pepcid) 20 mg PO BID JAY Last Admin: 08/14/18 08:29 Dose: 20 mg Hydroxyzine HCl (Vistaril Vial) 50 mg IM Q6H PRN PRN PRN Reason: Breakthrough Anxiety Hydroxyzine Pamoate (Vistaril Pamoate Capsule) 50 mg PO Q6H PRN PRN PRN Reason: Mild Anxiety Last Admin: 08/13/18 21:22 Dose: 50 mg Ibuprofen (Motrin) 600 mg PO Q8H PRN PRN PRN Reason: Mild-Moderate Pain (1-5/10) Last Admin: 08/13/18 21:21 Dose: 600 mg Loperamide HCl (Imodium) 2 - 4 mg PO UD PRN PRN Reason: LOOSE STOOLS Last Admin: 08/12/18 13:36 Dose: 4 mg Methocarbamol (Methocarbamol) 750 mg PO Q6H PRN PRN PRN Reason: Muscle Aches Last Admin: 08/14/18 08:34 Dose: 750 mg Nicotine (Nicoderm Cq (Pbkc)) 21 mg TRANSDERM. DAILY [facility] Last Admin: 08/14/18 08:29 Dose: 21 mg Ondansetron HCl (Zofran Odt) 4 mg PO Q6H PRN PRN PRN Reason: NAUSEA Last Admin: 08/13/18 21:27 Dose: 4 mg Pramipexole Dihydrochloride (Mirapex) 0.25 mg PO Q12H PRN PRN PRN Reason: Restless Legs Last Admin: 08/14/18 08:34 Dose: 0.25 mg Senna (Senokot) 1 tablet PO QHS PRN PRN Reason: Constipation Sodium Chloride () 5 - 15 ml IV UD PRN PRN Reason: SALINE FLUSH Last Admin: 08/12/18 22:17 Dose: 10 ml Trazodone HCl (Desyrel) 50 mg PO QHS JAY Last Admin: 08/13/18 21:28 Dose: 50 mg Medical Necessity - Tobacco Use Smoking Status: Current every day smoker Assessment/Plan All Active Problems Opioid withdrawal delirium, acute, hyperactive (Acute) Sepsis (Acute) Acute pyelonephritis (Acute) Acute cystitis (Acute) Patient is a 32-year-old lady with history of opioid dependence presented with acute opiate withdrawal 1. Acute opiate withdrawal patient has significant symptoms. Patient has been admitted to regular nursing floor for medical stabilization using Subutex as well as tapering dose of Librium patient has tolerated the program well so far with plans for patient to be discharged for subsequent outpatient treatment on 08/15/2018 2. Chronic opioid abuse counseled on cessation 3. Chronic benzo abuse patient was placed on Librium taper 4. ADHD currently stable. 5. Depression with anxiety: Instructed to follow-up with PCP for initiation of treatment 6. Tobacco dependence counseled on cessation, offered nicotine patch for tobacco cravings 7. DVT prophylaxis low risk did encourage early ambulation Code Visit Inpatient E&M: 54238 Subs Hosp L2
--- NOTE | 2018-08-14 10:36 | NEWVISION ---
Patient to attend [facility] for counseling at MAT services immediately upon discharge.
[2018-08-14 12:20] VITALS: BP 103/70; PULSE 82; RESP 18; TEMP 36.5
[2018-08-14] MEDS: hydrOXYzine PAM 25 MG Capsule 50 MG PO ×2 (12:31→21:13)
[2018-08-14] MEDS: Acetaminophen 500 MG Tablet PO (12:31)
[2018-08-14] MEDS: Ondansetron ODT 4 MG Tablet PO (12:31)
[2018-08-14 16:25] VITALS: BP 97/65; PULSE 68; RESP 14; TEMP 36.7
[2018-08-14 21:05] VITALS: BP 105/60; PULSE 77; RESP 16; TEMP 36.8
[2018-08-14] MEDS: Dicyclomine 10 MG Capsule 20 MG PO (21:13)
[2018-08-14] MEDS: traZODone 50 MG Tablet PO (21:13)
[2018-08-14] MEDS: 0.9% NaCl Peripheral Flush Adult/Peds IV (21:19)
[2018-08-15 00:33] VITALS: BP 102/58; PULSE 64; RESP 14; TEMP 36.5
[2018-08-15] MEDS: chlordiazePOXIDE 25 MG Capsule PO ×2 (00:35→08:33)
[2018-08-15 05:22] VITALS: BP 100/57; PULSE 62; RESP 14; TEMP 36.4
[2018-08-15] MEDS: Buprenorphine HCl 2 MG TAB.SUBL SL (05:25)
[2018-08-15] MEDS: Ibuprofen 600 MG Tablet PO (05:33)
[2018-08-15] MEDS: Dicyclomine 10 MG Capsule 20 MG PO (05:33)
[2018-08-15] MEDS: Methocarbamol 750 MG Tablet PO (05:33)
--- NOTE | 2018-08-15 07:51 | DCINST_ITS ---
- Discharge Diagnoses Current Active Problems: Current Active and Chronic Problems Opioid withdrawal delirium, acute, hyperactive (Acute) Tobacco dependence (Chronic) You will use the following diet at home:: No restrictions Discharge Activity: May not drive while taking narcotic pain medications. Allergies/Adverse Reactions: Allergies No Known Allergies Allergy (Verified 08/12/18 11:19) Medications to take at Discharge NK 08/12/18 Primary Care Physician: Care Physician,No Primary [Primary Care Provider] - Test Results: Test results from this visit will be discussed in further detail at your follow- up appointment, if applicable. Proposed Discharge Date: 08/15/18
--- NOTE | 2018-08-15 07:51 | PCM.DC.SUM ---
Discharge Date and Diagnosis - Problem List Patient Problems: Active and Suspected Problems Opioid withdrawal delirium, acute, hyperactive (Acute) Date of Admission: 08/12/18 Date of Discharge: 08/15/18 - Primary Discharge Diagnosis Active and Suspected Problems Opioid withdrawal delirium, acute, hyperactive (Acute) - Secondary Discharge Diagnosis Chronic Problems Tobacco dependence (Chronic) Back pain (Chronic) ADHD (attention deficit hyperactivity disorder) (Chronic) Hospital Course and Treatment Operations: None Summary of Care Provided: Patient is a 32-year-old lady with history of opioid dependence presented with acute opiate withdrawal 1. Acute opiate withdrawal patient has significant symptoms. Patient has been admitted to regular nursing floor for medical stabilization using Subutex as well as tapering dose of Librium patient has tolerated the program well and discharged for subsequent outpatient treatment on 08/15/2018 2. Chronic opioid abuse counseled on cessation 3. Chronic benzo abuse patient was placed on Librium taper 4. ADHD currently stable. 5. Depression with anxiety: Instructed to follow-up with PCP for initiation of treatment 6. Tobacco dependence counseled on cessation, offered nicotine patch for tobacco cravings 7. DVT prophylaxis low risk did encourage early ambulation Patient Problems: Active and Suspected Problems Opioid withdrawal delirium, acute, hyperactive (Acute) Objective: GENERAL: Cooperative HEENT: Atraumatic; moist oral mucosa EYES; Anicteric, Normal Conjunctiva NECK; supple, normal thyroid, RESPIRATORY: Diminished to auscultation bilaterally, CARDIOVASCULAR: Regular S1 S2, GI: soft, non-tender, normoactive bowel sounds, : No Renal angle tenderness; EXTREMITIES: No edema, no clubbing, . MUSCULOSKELETAL: No Joint Tenderness; NEURO: Awake; no lateralizing signs. - Physical Exam Vital Signs Temp Pulse Resp BP Pulse Ox 97.5 F L 62 14 100/57 L 99 08/15/18 05:22 08/15/18 05:22 08/15/18 05:22 08/15/18 05:22 08/14/18 06:21 Oxygen Delivery Method Room Air Weight: 62.3 kg Body Mass Index (BMI) 25.1 Intake and Output for Last 24 Hours 08/13/18 08/14/18 08/15/18 23:59 23:59 23:59 Intake Total 1300 / 1300 1600 / 1600 632 / 632 Balance 1300 / 1300 1600 / 1600 632 / 632 Discharge Diet: No Restrictions Discharge Activity: May not drive while taking narcotic pain medications. Home Medications: Medications to take at Discharge NK 08/12/18 Primary Care Physician: Care Physician,No Primary [Primary Care Provider] - Disposition: Home Minutes spent on discharge:: 31 Patient Condition:: Stable Medical Necessity - Tobacco Use Smoking Status: Current every day smoker Tobacco Use: Cigarettes Meaningful Use Info Meaningful Use Diagnoses (Choose all that apply): None applicable Code Visit Inpatient E&M: 64429 Disch Hosp
[2018-08-15 08:30] VITALS: BP 98/59; PULSE 66; RESP 16; TEMP 36.7
== END 2018-08-15 09:20 | disposition home or self-care (01) | DRG 773 ==
LOC: ED 11:52 → MS3 12:55
PROVIDERS: Admitting Provider Internal Medicine; Emergency Provider Emergency Medicine; Referring Provider Internal Medicine; Visit Provider Internal Medicine
DX: F11.221 Opioid dependence with intoxication delirium (principal); F13.239 Sedative, hypnotic or anxiolytic dependence with withdrawal, unspecified; F90.9 Attention-deficit hyperactivity disorder, unspecified type; F15.90 Other stimulant use, unspecified, uncomplicated; M54.9 Dorsalgia, unspecified; F41.8 Other specified anxiety disorders; F17.210 Nicotine dependence, cigarettes, uncomplicated
CPT/HCPCS: 36415; 80053; 80307; 83690; 84703; 85025; 96361; 96374; 97802; 99218; 99285; 99406; J7030; J7120; A4216; G0378

== ENCOUNTER → 2019-01-09 10:54 | Outpatient (CLI) | payer MEDICAID, SELFPAY ==
[2019-01-09 10:04] VITALS: BMI 24.3
[2019-01-09 12:33] LABS: Hematocrit 43.6 % (37-47); Hemoglobin 13.9 g/dL (12.0-15.0); Mean Corp Hgb Conc 31.9 g/dL (32-36); Mean Corpuscular Hgb 29.3 pg (27.0-32.0); Mean Corpuscular Volume 91.8 fL (81-99); Mean Platelet Vol. 10.3 fl (6.2-12.0); Platelet Count 296 K/mm3 (150-450); RBC Distribution Width SD 43.4 fl (35.1-43.9); Red Blood Count 4.75 M/mm3 (4.2-5.4); White Blood Count 8.8 K/mm3 (4.4-11.0)
[2019-01-09 13:05] LABS: ALB/GLOB Ratio 1.2 RATIO (0.9-2.4); AST(SGOT) 42 U/L (15-37); Alanine Aminotransfer ALT/SGPT 18 U/L (13-56); Albumin, Serum 4.1 g/dL (3.2-5.0); Alkaline Phosphatase 85 U/L (45-117); Anion Gap 9 (5-15); BUN 14 mg/dL (7-18); BUN/Creat Ratio 20.2 RATIO (10-20); Chloride 102 mmol/L (98-107); Creatinine, Serum 0.69 mg/dL (0.55-1.02); EST Glomerular Filtration Rate 104 mL/min (>60); Est Glom Filt Rate - Afr Amer 126 mL/min (>60); Globulin 3.5 g/dL (2.2-4.2); Glucose 82 mg/dL (74-106); Potassium 4.3 mmol/L (3.5-5.1); Protein, Total 7.6 g/dL (6.4-8.2); Sodium Level 139 mmol/L (136-145); Thyroid Stim Hormone (TSH) 0.85 uIU/mL (0.358-3.74)
[2019-01-09 13:30] LABS: HIV - WCH Non-Reactive (Nonreactive); Hepatitis B Surface Antigen Non-Reactive (Nonreactive)
[2019-01-10 06:07] LABS: Hepatitis C Ab 0.1 s/co ratio (0.0-0.9)
== END ==
PROVIDERS: Visit Provider Nurse Practitioner Family
DX: F19.10 Other psychoactive substance abuse, uncomplicated (principal); F41.9 Anxiety disorder, unspecified; F32.9 Major depressive disorder, single episode, unspecified
CPT/HCPCS: 36415; 80053; 84443; 85027; 86703; 86803; 86804; 87340

== ENCOUNTER 2019-01-09 23:43 | Emergency (ER) | payer MEDICAID, SELFPAY ==
[2019-01-09 23:43] VITALS: BMI 24.3
[2019-01-09 23:44] VITALS: BP 130/75; PULSE 102; RESP 16; TEMP 36.8; O2SAT 100; BMI 24.7
--- NOTE | 2019-01-09 23:57 | ED.DCSUM_ITS ---
- ER Visit Summary Date of Service: 01/09/19 Chief Complaint: Heroin withdrawal History of Present Illness: The patient is a 33 F who states that she is going through heroin withdrawal. She is having nausea, vomiting, diarrhea. Her legs are hurting. She has been shivering throughout most of the day. She states that she is supposed to be admitted to the [facility] on Saturday for rehab. Her last use of heroin was about 48 hours ago. She uses about 1/2 g of heroin per day. She was given Seroquel and Vistaril today because she had a physical at the [facility]. Physical Examination: Vital signs reviewed. Female in mild distress due to withdrawal. HEENT exam unremarkable. Heart is regular rate and rhythm without murmurs. Lungs are clear to auscultation. Abdomen is soft with mild diffuse tenderness. There is no guarding or rebound tenderness. Extremities reveal no edema. Skin exam normal. Neurologic exam normal. Test Results: None performed Emergency Department Course and Treatment: The patient's heart rate was in the 90s when I evaluated her. I gave her his normal saline, Bentyl and Zofran. She was complaining of restless legs I did give her some Ativan. At this point I do not feel she needs any laboratory testing. No signs of dehydration. This seems to be all heroin withdrawal. She is scheduled to go to a rehab facility in 2 days. I do not feel she needs any admission criteria. I will give her some Bentyl and Phenergan to help with symptoms at home and she will continue the Seroquel and Vistaril given to her today. Treatment Plan: [] Disposition: Discharge Impression: Heroin withdrawal This note was generated with [employer] dictation software. It may contain incorrect words, spelling, and punctuation that were not noted in review of the chart prior to signing ED Disposition - Plan for ED Patient: Referrals: Care Physician,No Primary [Primary Care Provider] -
[2019-01-10] MEDS: Ondansetron 4 MG/2 ML Vial IV (00:07)
[2019-01-10] MEDS: Dicyclomine 20 MG/2 ML Vial IM (00:07)
[2019-01-10] MEDS: 0.9% Normal Saline 1,000 ML 999 ML IV (00:07)
[2019-01-10] MEDS: LORazepam 2 MG/ML Syringe 1 MG IV (01:13)
--- NOTE | 2019-01-10 01:21 | ED.DEP ---
ED Disposition - Plan for ED Patient: Disposition: Home or Assisted Living Instructions: Narcotic Withdrawal Prescriptions: Dicyclomine HCl [Bentyl] 20 mg PO TIDAC #20 cap Prescription Printed proMETHazine tablet [Phenergan] 25 mg PO Q6H PRN PRN #10 tab PRN Reason: Nausea Prescription Printed Referrals: Care Physician,No Primary [Primary Care Provider] -
== END 2019-01-10 02:07 | disposition home or self-care (01) ==
PROVIDERS: Emergency Provider Emergency Medicine
DX: F11.23 Opioid dependence with withdrawal (principal)
CPT/HCPCS: 96361; 96372; 96374; 96375; 99283; J7030; A4216; J2405

== ENCOUNTER 2019-01-10 06:10 | Emergency (ER) | payer MEDICAID, SELFPAY ==
[2019-01-09 23:44] VITALS: BMI 24.7
[2019-01-10 06:10] VITALS: BP 109/74; PULSE 92; RESP 16; TEMP 36.5; O2SAT 100; BMI 24.7
--- NOTE | 2019-01-10 06:29 | ED.VISSUMM ---
- ER Visit Summary Date of Service: 01/10/19 Chief Complaint: Nausea vomiting and diarrhea, heroin withdrawal continued History of Present Illness: The patient is a 33 F who returns to the emergency department after being discharged about 5 hours ago. She was withdrawing from heroin at that time and was discharged after receiving medications. She returns because she is still vomiting and is having the muscle cramping. She was given Zofran, fluids and Ativan at her previous visit last night. She vomited twice after that when she went home. She states that she took all the medications that were given to her including Seroquel, Vistaril, Phenergan and Bentyl. She is not feeling any better. Physical Examination: Vital signs are reviewed. HEENT exam unremarkable. Heart is regular rate and rhythm without murmurs. Lungs are clear to auscultate bilaterally. Abdomen soft nontender. No distention. Back exam is nontender. Her extremities are all diffusely tender over the arms and legs. Her neurologic exam is normal with equal strength and sensation. Test Results: None performed Emergency Department Course and Treatment: I do see that another provider ordered laboratory studies yesterday, January 09. These were all unremarkable including a CBC and CMP. I do not feel these need to be repeated as her vital signs are normal. I will give her normal saline again as well as Toradol and Phenergan. Patient will be reevaluated by the oncoming physician for disposition. Treatment Plan: [] Disposition: Pending Impression: Heroin withdrawal, nausea vomiting and diarrhea This note was generated with [employer] dictation software. It may contain incorrect words, spelling, and punctuation that were not noted in review of the chart prior to signing ED Disposition - Plan for ED Patient: Referrals: Care Physician,No Primary [Primary Care Provider] -
--- NOTE | 2019-01-10 06:31 | ED.DEP ---
ED Disposition - Plan for ED Patient: Disposition: Home or Assisted Living Instructions: Narcotic Withdrawal Referrals: Care Physician,No Primary [Primary Care Provider] -
[2019-01-10] MEDS: Ketorolac 30 MG/ML Syringe IV (06:44)
[2019-01-10] MEDS: proMETHazine 25 MG/ML Syringe 12.5 MG IV (06:44)
[2019-01-10] MEDS: 0.9% Normal Saline 1,000 ML 999 ML IV (06:44)
[2019-01-10 07:55] VITALS: BP 135/77; PULSE 84; RESP 16; O2SAT 99
== END 2019-01-10 08:03 | disposition home or self-care (01) ==
LOC: ED 06:47
PROVIDERS: Emergency Provider Emergency Medicine
DX: F11.23 Opioid dependence with withdrawal (principal); R11.2 Nausea with vomiting, unspecified; R19.7 Diarrhea, unspecified
CPT/HCPCS: 96361; 96374; 96375; 99283; J7030

== ENCOUNTER 2019-01-11 19:24 | Emergency (ER) | payer MEDICAID, SELFPAY ==
[2019-01-10 06:10] VITALS: BMI 24.7
[2019-01-11 19:24] VITALS: BP 140/95; PULSE 77; RESP 16; TEMP 36.8; O2SAT 100; BMI 25.0
[2019-01-11 20:31] LABS: Absolute Lymphocyte Count 2.25 X10^3/uL (0.83-4.51); Absolute Neutrophil Count 5.2 X10^3/uL (2.0-7.7); Basophil# 0.07 X10^3/uL; Basophil% 0.9 % (0-1); Eosinophil# 0.14 X10^3/uL; Eosinophils% 1.7 % (0-5); Hematocrit 42.3 % (37-47); Hemoglobin 13.7 g/dL (12.0-15.0); Lymphocyte # 2.25 X10^3/ul (4.0); Lymphocyte % 27.6 % (19-41); Mean Corp Hgb Conc 32.4 g/dL (32-36); Mean Corpuscular Volume 92.6 fL (81-99); Mean Platelet Vol. 9.7 fl (6.2-12.0); Monocyte# 0.53 X10^3/uL; Monocyte% 6.5 % (0-10); NRBC Flagged by Analyzer 0 % (0-5); Neutrophil # 5.15 X10^3/uL (2.7-7.7); Neutrophil % 63.1 % (47-70); Platelet Count 250 K/mm3 (150-450); RBC Distribution Width CV 12.9 % (11.6-14.6); RBC Distribution Width SD 43.9 fl (35.1-43.9); Red Blood Count 4.57 M/mm3 (4.2-5.4); White Blood Count 8.2 K/mm3 (4.4-11.0)
[2019-01-11 20:40] LABS: Internal QC Validated? YES +Cl - CLEAR BKGD; Pregnancy, Serum, hCG Quali. NEGATIVE Negative
[2019-01-11 20:43] LABS: Alcohol, Blood (Medical)-Serum < 3.0 mg/dL
[2019-01-11 20:44] LABS: Anion Gap 8 (5-15); BUN 14 mg/dL (7-18); BUN/Creat Ratio 20.6 RATIO (10-20); Calcium,Total 9.3 mg/dL (8.5-10.1); Chloride 105 mmol/L (98-107); Creatinine, Serum 0.68 mg/dL (0.55-1.02); EST Glomerular Filtration Rate 107 mL/min (>60); Est Glom Filt Rate - Afr Amer 129 mL/min (>60); Estimated Creatinine Clearance 93.94 ml/min; Glucose 79 mg/dL (74-106); Potassium 3.5 mmol/L (3.5-5.1); Sodium Level 141 mmol/L (136-145)
[2019-01-11 20:52] LABS: Amphetamine Urine VISTA POSITIVE (<1000 ng/mL); Barbiturate Urine VISTA NEGATIVE (< 200 ng/mL); Benzodiazepine Urine VISTA POSITIVE (< 200 ng/mL); Cocaine Urine VISTA NEGATIVE (< 300 ng/mL); Ecstacy Urine VISTA POSITIVE (< 500 ng/mL); Methadone Urine VISTA NEGATIVE (< 300 ng/mL); PCP Urine VISTA NEGATIVE (< 25 ng/mL); THC Urine VISTA NEGATIVE (< 50 ng/mL); Vista UDS pH Range 5
[2019-01-11 21:00] VITALS: RESP 18
--- NOTE | 2019-01-11 21:09 | ED.RN ---
CALLED CRISIS TO SEE THIS PT, MADDY IS CLINICAL REHABILITATION AIDE
--- NOTE | 2019-01-11 21:16 | ED.DCSUM_ITS ---
- ER Visit Summary Date of Service: 01/11/19 Chief Complaint: Suicidal ideation History of Present Illness: The patient is a 33 F who presents with suicidal ideation that began tonight. Patient states she got into an argument with her sister and said something that she did not mean. Patient currently denies any suicidal ideation. Patient denies any plan for suicide. Police filled out a pink slip which stated the patient threatened to kill herself earlier tonight. Patient is supposed to get treatment for heroin addiction starting tomorrow. Police report that the patient threatened to kill herself several times tonight. Police report that her sister and her father are concerned about her harming herself. Physical Examination: Vital signs are stable. Patient is afebrile. Patient is in no acute distress. Oral mucosa is pink and moist. Neck is supple. Trachea is midline. There is no JVD noted. Heart was regular rate and rhythm. Lungs are clear and equal bilaterally. Abdomen is soft. Bowel sounds are normal. There is no tenderness. There is no guarding noted. Skin is warm dry. Cranial nerves II through XII are intact. There are no focal motor or sensory deficits noted. Patient does have a flat affect and has poor eye contact. Patient denies any suicidal or homicidal ideations at this time. Test Results: CBC, basic metabolic profile, serum hCG, and serum alcohol level were all normal. Urine tox screen was positive for amphetamines, MDMA, and benzodiazepines. Emergency Department Course and Treatment: Patient was resting comfortably here in the emergency department. Crisis was in to evaluate the patient. They felt that the patient was able to go home with her father jayda. He was able to contract for safety. Patient is scheduled to go to inpatient rehab for 30 days with 180 tomorrow. Patient was instructed to follow-up with this. Patient understood and was agreeable with the plan. All questions were answered. Disposition: Discharge home with father Impression: Depression This note was generated with [employer] dictation software. It may contain incorrect words, spelling, and punctuation that were not noted in review of the chart prior to signing ED Disposition - Plan for ED Patient: Disposition: Home or Assisted Living Diagnosis: Depression Instructions: Depression, CONTRACT, No Harm Referrals: Care Physician,No Primary [Primary Care Provider] - Additional Instructions: Follow-up for your inpatient rehab tomorrow as scheduled. Follow-up with crisis counseling as discussed with the crisis counselor.
--- NOTE | 2019-01-11 21:40 | ED.RN ---
CRISIS ON SITE
--- NOTE | 2019-01-11 23:17 | ED.RN ---
PT BEING DISCHARGED HOME WITH SAFETY PLAN, VERBAL ORDER FROM DR. ZARATE TO DISCONTINUE SITTER.
[2019-01-11 23:39] VITALS: BP 131/95; PULSE 66; RESP 14
== END 2019-01-11 23:40 | disposition home or self-care (01) ==
PROVIDERS: Emergency Provider Emergency Medicine
DX: F32.9 Major depressive disorder, single episode, unspecified (principal); R45.851 Suicidal ideations; F11.20 Opioid dependence, uncomplicated
CPT/HCPCS: 36415; 80048; 80307; 80320; 84703; 85025; 99283; G0480

== ENCOUNTER 2019-01-16 10:00 | Emergency (ER) | payer MEDICAID, SELFPAY ==
[2019-01-16 10:00] VITALS: BP 123/94; PULSE 87; RESP 27; TEMP 36.7; O2SAT 100; BMI 25.3
--- NOTE | 2019-01-16 10:12 | EKG12_ITS ---
Test Reason : CP Blood Pressure : / mmHG Vent. Rate : 082 BPM Atrial Rate : 082 BPM P-R Int : 108 ms QRS Dur : 096 ms QT Int : 372 ms P-R-T Axes : 063 069 059 degrees QTc Int : 434 ms Sinus rhythm with short WA Incomplete right bundle branch block Borderline ECG Confirmed by ZOE LIPSCOMB, CHASTITY ([id number]), supervising editor trailer FRANK MENDOZA ([id number]) on 01/20/2019 2:17:02 PM Referred By: FRANK Confirmed By:CHASTITY ENRIQUEZ MD
--- NOTE | 2019-01-16 10:12 | RAD_ITS ---
STUDY: X-RAY CHEST REASON FOR EXAM: Female, 33 years old. Shortness of breath. Chest pain. TECHNIQUE: Single AP portable view of the chest. COMPARISON: Comparison is made with prior study November 13, 2017. FINDINGS: EKG electrodes are seen. The previously seen right lower lobe infiltrate as clear. Scattered calcified granulomas. There is no demonstrated pleural abnormality. Normal size heart. Normal mediastinum and kalyani. Normal visualized pulmonary arteries. Normal visualized aortic arch and descending thoracic aorta. Normal visualized thoracic spine. Normal visualized ribs, clavicles, and shoulders. There is no demonstrated abnormality of the visualized soft tissue structures of the upper abdomen. RAD/Chest 1 View (Portable) IMPRESSION: Normal x-ray examination of the chest. Electronically Signed: Alejandro Mcdaniel, at 10:38 EST , Service support ,
[2019-01-16] MEDS: Ketorolac 15 MG/ML Vial IV (10:27)
[2019-01-16] MEDS: Ondansetron 4 MG/2 ML Vial IV (10:27)
[2019-01-16] MEDS: 0.9% Normal Saline 1,000 ML 1000 ML IV (10:27)
[2019-01-16 10:37] LABS: Absolute Lymphocyte Count 1.97 X10^3/uL (0.83-4.51); Absolute Neutrophil Count 6.5 X10^3/uL (2.0-7.7); Basophil# 0.08 X10^3/uL; Basophil% 0.9 % (0-1); Eosinophil# 0.12 X10^3/uL; Eosinophils% 1.3 % (0-5); Hematocrit 45.1 % (37-47); Hemoglobin 14.6 g/dL (12.0-15.0); Internal QC Validated? YES +Cl - CLEAR BKGD; Lymphocyte # 1.97 X10^3/ul (4.0); Lymphocyte % 21.3 % (19-41); Mean Corp Hgb Conc 32.4 g/dL (32-36); Mean Corpuscular Volume 92.8 fL (81-99); Monocyte# 0.55 X10^3/uL; Monocyte% 5.9 % (0-10); NRBC Flagged by Analyzer 0 % (0-5); Neutrophil % 70.3 % (47-70); Platelet Count 259 K/mm3 (150-450); Pregnancy, Serum, hCG Quali. NEGATIVE Negative; RBC Distribution Width SD 44.9 fl (35.1-43.9); Red Blood Count 4.86 M/mm3 (4.2-5.4); White Blood Count 9.3 K/mm3 (4.4-11.0)
[2019-01-16 10:47] LABS: Mucous, Urine 0 SEEN /hpf (<or=2+); Red Blood Cells-Urine 0 SEEN /hpf (0-5)
[2019-01-16 10:51] LABS: D-Dimer Quantitative (DVT/PE) 0.47 FEU/ug/m (0.27-0.49)
[2019-01-16 10:54] LABS: ALB/GLOB Ratio 1.1 RATIO (0.9-2.4); AST(SGOT) 37 U/L (15-37); Alanine Aminotransfer ALT/SGPT 22 U/L (13-56); Albumin, Serum 3.9 g/dL (3.2-5.0); Alkaline Phosphatase 79 U/L (45-117); Anion Gap 9 (5-15); BUN 12 mg/dL (7-18); BUN/Creat Ratio 16.3 RATIO (10-20); Calcium,Total 8.8 mg/dL (8.5-10.1); Chloride 108 mmol/L (98-107); Creatinine, Serum 0.73 mg/dL (0.55-1.02); EST Glomerular Filtration Rate 98 mL/min (>60); Est Glom Filt Rate - Afr Amer 118 mL/min (>60); Globulin 3.5 g/dL (2.2-4.2); Glucose 72 mg/dL (74-106); Lipase 232 U/L (73-393); Potassium 3.6 mmol/L (3.5-5.1); Protein, Total 7.4 g/dL (6.4-8.2); Sodium Level 144 mmol/L (136-145)
[2019-01-16 10:56] LABS: Color, Urine Yellow (Yellow); Glucose, Dipstick Normal (Normal); Ketone-Dipstick Negative (Negative); Leukocyte Esterase-Dipstick 500 /ul (Negative); Nitrite-Dipstick Negative (Negative); Occult Blood-Urine Negative /ul (Negative); Protein-Dipstick Negative (Negative); Urine Bilirubin Dipstick Negative (Negative); Urine Clarity Sl. Cloudy (Clear); Urine Urobilinogen Normal (Normal)
--- NOTE | 2019-01-16 11:06 | ED.DCSUM_ITS ---
- ER Visit Summary Date of Service: 01/16/19 Chief Complaint: Chest pain History of Present Illness: The patient is a 33 F presenting with chest pain. She states this started one hour prior to arrival. She has sharp pain bilateral chest. She states she had vomiting last night. She is currently in rehab for heroin abuse. She states she had mild shortness of breath. She has abdominal cramping, nausea, vomiting. She denies diarrhea. Denies fever. Denies history of IV drug abuse. Denies other complaints. Physical Examination: Vitals are stable. Patient is afebrile. Alert no acute distress. HEENT exam is unremarkable. Neck is supple. Lungs are clear and equal bilaterally. Chest tender to palpation with no crepitus Heart is regular rate and rhythm. Abdomen is soft epigastric and suprapubic tenderness, no rebound or guarding Extremities are unremarkable. Skin is warm and dry. No rash. No focal neurologic deficit. Remainder of exam is unremarkable. Emergency Department Course and Treatment: EKG is sinus rate of 82, no acute ischemic changes. Chest x-ray shows no acute process. CBC, chemistries unremarkable. Troponin is negative. D-dimer negative. hCG negative. Urinalysis shows 25-50 white blood cells, 1+ bacteria. Urine culture was sent. She was given Keflex and a prescription for Keflex. Patient was given Zofran, Toradol IV. On reevaluation, she is resting comfortably. She declines repeat troponin. She elects to sign out AGAINST MEDICAL ADVICE. She is advised of the risks including NH and . Patient understands these risks. She will return to ED if she has any worsening complaints. She is given Dr. Gramajo metal fabrication supervisor for no doctor for follow-up. Advised return to ED for worsening complaints. Disposition: Left AGAINST MEDICAL ADVICE Impression: Chest pain, UTI This note was generated with Kickboard dictation software. It may contain incorrect words, spelling, and punctuation that were not noted in review of the chart prior to signing ED Disposition - Plan for ED Patient: Instructions: Understanding Urinary Tract Infections (UTIs), CHEST PAIN, Uncertain Cause Prescriptions: Cephalexin [Keflex] 500 mg PO Q6 #40 cap Prescription Printed Referrals: Bartolo Gramajo MD [STAFF PHYSICIAN] -
[2019-01-16 11:09] LABS: White Blood Cells 25-50 SEEN /hpf (0-5)
[2019-01-16 11:13] LABS: Bacteria 1+ /hpf (None Seen); Squamous Epithelial Cells - UA 0-5 SEEN /hpf (5-10)
[2019-01-16 12:21] VITALS: BP 124/90; PULSE 84; RESP 14; O2SAT 100
[2019-01-16] MEDS: Cephalexin 250 MG Capsule 500 MG PO (12:47)
--- NOTE | 2019-01-16 12:54 | ED.DEP ---
ED Disposition - Plan for ED Patient: Instructions: CHEST PAIN, Uncertain Cause, Understanding Urinary Tract Infections (UTIs) Prescriptions: Cephalexin [Keflex] 500 mg PO Q6 #40 capsule Referrals: Bartolo Gramajo MD [STAFF PHYSICIAN] -
[2019-01-16 13:10] VITALS: BP 118/94
== END 2019-01-16 13:12 | disposition left against medical advice (07) ==
PROVIDERS: Emergency Provider Emergency Medicine
DX: R07.9 Chest pain, unspecified (principal); N39.0 Urinary tract infection, site not specified; Z72.0 Tobacco use; Z90.49 Acquired absence of other specified parts of digestive tract
CPT/HCPCS: 71045; 80053; 81001; 83690; 84484; 84703; 85025; 85379; 87086; 87088; 93005; 96361; 96374; 96375; 99285; J7030; A4216; J2405

== ENCOUNTER 2019-03-29 07:23 | Emergency (ER) | payer MEDICAID, SELFPAY ==
[2019-03-29 07:24] VITALS: BP 118/71; PULSE 84; RESP 18; TEMP 36.6; O2SAT 98; BMI 31.1
[2019-03-29 07:55] LABS: Absolute Lymphocyte Count 1.92 X10^3/uL (0.83-4.51); Absolute Neutrophil Count 4.7 X10^3/uL (2.0-7.7); Basophil# 0.09 X10^3/uL; Eosinophil# 1.53 X10^3/uL; Eosinophils% 17.4 % (0-5); Hematocrit 40.8 % (37-47); Hemoglobin 13.4 g/dL (12.0-15.0); Lymphocyte # 1.92 X10^3/ul (4.0); Lymphocyte % 21.9 % (19-41); Mean Corp Hgb Conc 32.8 g/dL (32-36); Mean Corpuscular Hgb 30.7 pg (27.0-32.0); Mean Corpuscular Volume 93.4 fL (81-99); Mean Platelet Vol. 9.9 fl (6.2-12.0); Monocyte# 0.55 X10^3/uL; Monocyte% 6.3 % (0-10); NRBC Flagged by Analyzer 0 % (0-5); Neutrophil # 4.66 X10^3/uL (2.7-7.7); Neutrophil % 53.1 % (47-70); Platelet Count 249 K/mm3 (150-450); RBC Distribution Width CV 12.9 % (11.6-14.6); RBC Distribution Width SD 44.4 fl (35.1-43.9); Red Blood Count 4.37 M/mm3 (4.2-5.4); White Blood Count 8.8 K/mm3 (4.4-11.0)
[2019-03-29] MEDS: 0.9% Normal Saline 1,000 ML 1000 ML IV (07:59)
[2019-03-29] MEDS: Ondansetron 4 MG/2 ML Vial IV (07:59)
--- NOTE | 2019-03-29 08:00 | ED.VIS.GEN ---
History of Present Illness Chief Complaint: Abd Pain Informant: Patient Onset: Days Maximum Severity: Mild Narrative: Patient presents with right upper quadrant pain began about 4 days ago, she has a history of heroin opiate abuse snorting no history of IV drug abuse, she has been sober for about 70 days, received a Vivitrol injection day is not clear if the Vivitrol injection contributed to rate her right upper quadrant discomfort, she has a prior history for cholecystectomy she has some very mild nausea, she is eating and drinking well bowel and bladder habits been normal she has no fever no cough no other complaints Past Medical History - Allergies and Home Meds Allergies/Adverse Reactions: Allergies No Known Allergies Allergy (Verified 03/29/19 07:26) Primary Care Physician: Kitty Santana MD [Primary Care Provider] - Surgical History: cholecystectomy Smoking Status: Current every day smoker - Family History Maternal Family History: Family History (Last Updated 01/09/19 @ 10:03 by Jacki Stewart) Other Anxiety Depression Seizures Family History: Reports: No pertinent history Paternal Family History: Family History (Last Updated 01/09/19 @ 10:03 by Jacki Stewart) Other Anxiety Depression Seizures Family History: Reports: Hypertension Review of Systems General: Denies: Chills, Fever, Sweats Eyes: Denies: Visual changes - bilaterally, Diplopia ENT: Denies: Rhinorrhea, Sore throat Cardiovascular: Denies: Chest pain, Palpitations Respiratory: Denies: Dyspnea, Cough, Dyspnea on exertion Gastrointestinal: Reports: Abdominal pain, Nausea. Denies: Vomiting, Diarrhea, Melena, Hematochezia Genitourinary: Denies: Dysuria, Hematuria, Frequency Musculoskeletal: Denies: Back pain, Extremity Pain Skin: Denies: Rash, Wounds Neurological: Denies: Headache, Weakness, Numbness Physical Exam Vital Signs/Narrative: Vital Signs Temp Pulse Resp BP Pulse Ox 03/29/19 07:24 98 F 84 18 118/71 98 General: Well nourished, Well developed, No Acute Distress Head: Normocephalic, Atraumatic Eyes: Perrl, EOMI ENT: Moist mucous membranes, No rhinorrhea Neck: Supple, Nontender Cardiovascular: Regular rate, Regular rhythm, No murmurs Respiratory: No distress, CTA bilaterally, Chest nontender Abdomen: Soft, Nontender, Nondistended, Normal bowel sounds, - - Very mild pain to the right upper quadrant rebound or guarding Back: Nontender, Normal Inspection Extremities: Nontender, No edema Skin: Normal color, No rash Neurological: Alert, Oriented x3, Cranial nerves II-XII grossly intact, Normal Strength, Normal Sensation Psychological: Normal affect, Normal Mood Diagnostic/Tx/Re-eval - Medical Decision Making All the above in her complaints screening evaluation will be obtained labs CT IV fluids Toradol for pain ED Disposition - Plan for ED Patient: Referrals: Kitty Santana MD [Primary Care Provider] -
--- NOTE | 2019-03-29 08:05 | CT_ITS ---
STUDY: CT ABDOMEN AND PELVIS WITHOUT CONTRAST REASON FOR EXAM: Female, 33 years old. Right flank pain RADIATION DOSAGE (If Supplied By Facility): CTDIvol = ( 7.31 ) mGy, DLP = ( 370.72 ) mGycm TECHNIQUE: Transaxial images were obtained from the dome of the diaphragm to the symphysis pubis without oral contrast, and without intravenous contrast. Sagittal and coronal images were reconstructed. Individualized dose optimization techniques were used for this CT. COMPARISON: 02/22/2016 FINDINGS: Evaluation of the abdominal viscera is limited in the absence of intravenous contrast. The visualized lung bases are clear. The visualized portions of the heart and pericardium are within normal limits. The patient is status post cholecystectomy. The liver demonstrates an unremarkable unenhanced appearance. The spleen is normal in size. The pancreas demonstrates an unremarkable unenhanced appearance. The adrenal glands are within normal limits. There are no renal or ureteral stones. There is no hydronephrosis. Normal visualized stomach. There is no bowel obstruction or inflammation. The appendix is visualized and appears normal. The aorta is normal in caliber. There is a right adnexal cyst with a small amount of free fluid. There is no free air, fluid collection or lymphadenopathy. There are no destructive osseous lesions. CT/Abdomen/Pelvis without Cont IMPRESSION: Right adnexal cyst with a small amount of pelvic free fluid. No urinary calculi. No hydronephrosis. No bowel obstruction or inflammation. Normal appendix. Electronically Signed: Kiran Capellan, at 8:45 EST Tel , Service support ,
[2019-03-29 08:11] LABS: ALB/GLOB Ratio 1.3 RATIO (0.9-2.4); AST(SGOT) 36 U/L (15-37); Alanine Aminotransfer ALT/SGPT 19 U/L (13-56); Albumin, Serum 3.9 g/dL (3.2-5.0); Alkaline Phosphatase 82 U/L (45-117); Anion Gap 7 (5-15); BUN 16 mg/dL (7-18); BUN/Creat Ratio 19.2 RATIO (10-20); Calcium,Total 8.5 mg/dL (8.5-10.1); Chloride 108 mmol/L (98-107); Creatinine, Serum 0.84 mg/dL (0.55-1.02); EST Glomerular Filtration Rate 84 mL/min (>60); Est Glom Filt Rate - Afr Amer 102 mL/min (>60); Estimated Creatinine Clearance 72.55 ml/min; Glucose 98 mg/dL (74-106); Lipase 85 U/L (73-393); Potassium 3.6 mmol/L (3.5-5.1); Protein, Total 6.9 g/dL (6.4-8.2); Sodium Level 142 mmol/L (136-145)
[2019-03-29 08:18] LABS: Red Blood Cells-Urine 0 SEEN /hpf (0-5)
[2019-03-29 08:19] LABS: Color, Urine Yellow (Yellow); Glucose, Dipstick Normal (Normal); Ketone-Dipstick Negative (Negative); Leukocyte Esterase-Dipstick 100 /ul (Negative); Nitrite-Dipstick Negative (Negative); Occult Blood-Urine Negative /ul (Negative); Protein-Dipstick Negative (Negative); Urine Bilirubin Dipstick Negative (Negative); Urine Clarity Cloudy (Clear); Urine Urobilinogen Normal (Normal)
[2019-03-29 08:27] LABS: Bacteria 1+ /hpf (None Seen); Mucous, Urine 2+ /hpf (<or=2+); Squamous Epithelial Cells - UA 5-10 SEEN /hpf (5-10); White Blood Cells 0-5 SEEN /hpf (0-5)
[2019-03-29] MEDS: Ketorolac 30 MG/ML Syringe IV (08:28)
[2019-03-29 09:18] LABS: Internal QC Validated? YES +Cl - CLEAR BKGD; Pregnancy, Serum, hCG Quali. NEGATIVE Negative
--- NOTE | 2019-03-29 09:28 | ED.VIS.GEN ---
History of Present Illness Chief Complaint: Abd Pain Informant: Patient Past Medical History - Allergies and Home Meds Allergies/Adverse Reactions: Allergies No Known Allergies Allergy (Verified 03/29/19 07:26) Primary Care Physician: Kitty Santana MD [Primary Care Provider] - Surgical History: cholecystectomy Smoking Status: Current every day smoker - Family History Maternal Family History: Family History (Last Updated 01/09/19 @ 10:03 by Jacki Stewart) Other Anxiety Depression Seizures Family History: Reports: No pertinent history Paternal Family History: Family History (Last Updated 01/09/19 @ 10:03 by Jacki Stewart) Other Anxiety Depression Seizures Family History: Reports: Hypertension Physical Exam Vital Signs/Narrative: Vital Signs Temp Pulse Resp BP Pulse Ox 03/29/19 07:24 98 F 84 18 118/71 98 ED Disposition - Plan for ED Patient: Diagnosis: Abdominal pain Instructions: ABDOMINAL PAIN, Unknown Cause, (Female) Prescriptions: Ondansetron [Zofran Odt] 4 mg PO Q8H PRN PRN #14 tab PRN Reason: Nausea/Vomiting Prescription Printed Referrals: Kitty Santana MD [Primary Care Provider] -
[2019-03-29 09:42] VITALS: BP 100/69; PULSE 65; RESP 16; O2SAT 100
== END 2019-03-29 10:07 | disposition home or self-care (01) ==
PROVIDERS: Emergency Provider Emergency Medicine; PCP Internal Medicine
DX: R10.11 Right upper quadrant pain (principal); F17.200 Nicotine dependence, unspecified, uncomplicated; Z82.49 Family history of ischemic heart disease and other diseases of the circulatory system; Z90.49 Acquired absence of other specified parts of digestive tract; F11.10 Opioid abuse, uncomplicated
CPT/HCPCS: 36415; 74176; 80053; 81001; 83690; 84703; 85025; 96361; 96374; 96375; 99283; J7030; A4216; J2405

== ENCOUNTER 2020-12-29 14:02 | Emergency (ER) | payer MEDICAID, SELFPAY ==
[2020-12-29 14:03] VITALS: BP 147/84; PULSE 106; RESP 16; TEMP 38.6; O2SAT 100; BMI 24.8
--- NOTE | 2020-12-29 14:48 | ED.RN ---
PT DENIES PAIN, HERE D/T FREQUENCY OF URINATION.
[2020-12-29] MEDS: Ketorolac 15 MG/ML Vial IV (15:10)
[2020-12-29 15:24] LABS: Absolute Lymphocyte Count 0.58 X10^3/uL (0.83-4.51); Absolute Neutrophil Count 6.7 X10^3/uL (2.0-7.7); Basophil# 0.01 X10^3/uL; Basophil% 0.1 % (0-1); Eosinophil# 0.07 X10^3/uL; Eosinophils% 0.9 % (0-5); Hematocrit 35.3 % (37-47); Hemoglobin 11.4 g/dL (12.0-15.0); Lymphocyte # 0.58 X10^3/ul (0.83-4.51); Mean Corp Hgb Conc 32.3 g/dL (32-36); Mean Corpuscular Hgb 29.6 pg (27.0-32.0); Mean Corpuscular Volume 91.7 fL (81-99); Mean Platelet Vol. 10.2 fl (6.2-12.0); Monocyte# 0.82 X10^3/uL; NRBC Flagged by Analyzer 0 % (0-5); Neutrophil # 6.72 X10^3/uL (2.7-7.7); Neutrophil % 81.6 % (47-70); POSITIVE DIFFERENTIAL YES; Platelet Count 139 K/mm3 (150-450); RBC Distribution Width CV 12.6 % (11.6-14.6); RBC Distribution Width SD 42.2 fl (35.1-43.9); Red Blood Count 3.85 M/mm3 (4.2-5.4); White Blood Count 8.2 K/mm3 (4.4-11.0)
[2020-12-29 15:28] LABS: Differential Indicated SCAN CRITERIA MET
[2020-12-29] MEDS: Ceftriaxone 1 GM/50 ML BAG IV (15:30)
[2020-12-29 15:38] LABS: AST(SGOT) 40 U/L (15-37); Alanine Aminotransfer ALT/SGPT 14 U/L (13-56); Albumin, Serum 3.4 g/dL (3.2-5.0); Alkaline Phosphatase 67 U/L (45-117); Anion Gap 7 (5-15); BUN 9 mg/dL (7-18); BUN/Creat Ratio 15.4 RATIO (10-20); Calcium,Total 8.4 mg/dL (8.5-10.1); Chloride 101 mmol/L (98-107); Creatinine, Serum 0.58 mg/dL (0.55-1.02); EST Glomerular Filtration Rate 125 mL/min (>60); Est Glom Filt Rate - Afr Amer 152 mL/min (>60); Estimated Creatinine Clearance 108.09 ml/min; Globulin 3.3 g/dL (2.2-4.2); Glucose 97 mg/dL (74-106); Potassium 3.5 mmol/L (3.5-5.1); Protein, Total 6.7 g/dL (6.4-8.2); Sodium Level 135 mmol/L (136-145)
[2020-12-29] MEDS: Ondansetron 4 MG/2 ML Vial IV (16:24)
--- NOTE | 2020-12-29 16:28 | EX.ED.DYSGE1 ---
HPI History of Present Illness Chief Complaint: Complaint Narrative Narrative: Patient presents wit dysuria frequency and urgency as well as flank pain and fever that started yesterday she was seen at an urgent care and had a positive urinalysis. She has no upper abdominal pain no left lower abdominal pain, she does have some vomiting. She has no diarrhea or constipation. She does have a history of pyelonephritis. [facility] Medical History (Updated 12/29/20 @ 16:[address] Cuong Celeste MD) Anxiety and depression Heart murmur History of kidney stones History of seizures History of substance abuse Home Medications naltrexone microspheres 380 mg intramuscular suspension,extended release 380 mg IM Q4W 04/01/19 [History Last Taken Unknown] promethazine 12.5 mg tablet 12.5 mg PO TID PRN #20 tab 04/01/19 [Rx Last Taken Unknown] cefdinir 300 mg PO BID #20 cap 12/29/20 [Rx Last Taken Unknown] ondansetron HCl [Zofran] 4 mg PO Q8H #7 tab 12/29/20 [Rx Last Taken Unknown] Allergy/AdvReac Type Severity Reaction Status Date / Time No Known Allergies Allergy Verified 12/29/20 14:06 Family History Other Anxiety Depression Seizures Surgical History History of cholecystectomy Social History (Updated 04/06/19 @ 20:16 by Bartolo Ritter NP, ETHNOGRAPHER-C) Smoking Status: Current every day smoker tobacco type: cigarettes alcohol intake: never substance use type: former substance user what type of physical activity do you participate in: none ROS ROS ED ROS Narrative Past medical history: Reviewed Medications: Reviewed Social history: Noncontributory Review of systems: All systems negative except as indicated General: Fever as in HPI Eyes: No visual changes ENT: No upper airway congestion, normal voice Neck: No neck pain Cardiovascular: No chest pain Respiratory: No shortness of breath or cough Gastrointestinal: Flank and abdominal pain Genitourinary: Urinary symptoms as in HPI Musculoskeletal: Denies myalgias no difficulty with ambulation Skin: No rash Neurological: No memory loss, confusion or any focal weakness Psych: No recent behavioral changes Hematologic: No easy bleeding or easy bruising EXAM Physical Exam Narrative Exam Narrative: Physical exam General: Patient appears relatively comfortable. Head: Normocephalic, Atraumatic Eyes: Conjunctiva not pale ENT: Moist mucous membranes Neck: Supple, Nontender, No lymphadenopathy Cardiovascular: Regular rate, Regular rhythm Respiratory: No distress, CTA bilaterally Abdomen: Soft some suprapubic pain and CVA tenderness. Extremities: Nontender, No edema Skin: Normal color, No rash Neurological: Alert, Normal Strength, Normal Sensation Psychological: Normal affect Const Vital Signs: 12/29/20 14:03 Temperature 101.4 F H Temperature Source Oral Pulse Rate 106 H Respiratory Rate 16 Blood Pressure 147/84 H Blood Pressure Mean 105 Pulse Ox 100 Oxygen Delivery Method Room Air MDM MDM MDM Narrative Medical decision making narrative: Patient appears well, she does have pyelonephritis I gave her Rocephin in the ED I will treat her outpatient with antibiotics I believe she is stable for discharge and outpatient treatment of her pyelonephritis. Lab Data Labs: Laboratory Results - last 24 hr 12/29/20 12/29/20 15:12 15:12 WBC 8.2 RBC 3.85 L Hgb 11.4 L Hct 35.3 L MCV 91.7 MCH 29.6 MCHC 32.3 RDW Std Deviation 42.2 RDW Coeff of Luma 12.6 Plt Count 139 L MPV 10.2 Immature Gran % (Auto) 0.400 Neut % (Auto) 81.6 H Lymph % (Auto) 7.0 L [place] % (Auto) 10.0 Eos % (Auto) 0.9 Baso % (Auto) 0.1 Absolute Neuts (auto) 6.7 Absolute Lymphs (auto) 0.58 L Nucleated RBC % 0 Sodium 135 L Potassium 3.5 Chloride 101 Carbon Dioxide 27.0 Anion Gap 7 BUN 9 Creatinine 0.58 Estim Creat Clear Calc 108.09 Est GFR (MDRD) Af Amer 152 Est GFR (MDRD) Non-Af 125 BUN/Creatinine Ratio 15.4 Glucose 97 Calcium 8.4 L Total Bilirubin 0.40 AST 40 H ALT 14 Alkaline Phosphatase 67 Total Protein 6.7 Albumin 3.4 Globulin 3.3 Albumin/Globulin Ratio 1.0 Discharge Plan Triage Chief Complaint: Complaint ED Provider: Cuong Celeste Dx/Rx/DC Orders Clinical Impression: Pyelonephritis Instructions: ED Pyelonephritis, Female (Adult) Prescriptions: New cefdinir 300 mg capsule 300 mg PO BID Qty: 20 RF: 0 ondansetron HCl [Zofran] 4 mg tablet 4 mg PO Q8H Qty: 7 RF: 0 No Action Vivitrol 380 mg suspension,extended rel recon 380 mg IM Q4W RF: 0 promethazine 12.5 mg tablet 12.5 mg PO TID PRN (Reason: nausea and vomiting) Qty: 20 RF: 0 Primary Care Provider: Kitty Santana Referrals: Kitty Santana MD [Primary Care Provider] - 3-5 Days Disposition Disposition: Home, Self Care
[2020-12-29 16:56] LABS: Differential Comment SCANNED
== END 2020-12-29 16:51 | disposition home or self-care (01) ==
PROVIDERS: Emergency Provider Emergency Medicine; PCP Internal Medicine
DX: N12 Tubulo-interstitial nephritis, not specified as acute or chronic (principal); F17.210 Nicotine dependence, cigarettes, uncomplicated; Z87.442 Personal history of urinary calculi
CPT/HCPCS: 80053; 85025; 87077; 87086; 87088; 87186; 96365; 96375; 99283; J2405

== ENCOUNTER 2020-12-31 14:06 | Inpatient (IN) | payer MEDICAID, SELFPAY ==
[2020-12-31 14:07] VITALS: BP 114/71; PULSE 98; RESP 16; TEMP 37.1; O2SAT 100; BMI 26.3
[2020-12-31 14:11] VITALS: BP 114/71; PULSE 98; RESP 16; TEMP 37.1; O2SAT 100
--- NOTE | 2020-12-31 14:50 | CT_ITS ---
EXAM: CT ABDOMEN AND PELVIS WITH INTRAVENOUS CONTRAST CLINICAL INDICATION: abdominal pain -- TECHNIQUE: Helically acquired images were obtained of the abdomen and pelvis with intravenous contrast. This CT exam was performed using one or more of the following dose reduction techniques: automated exposure control, adjustment of the mA and/or kV according to patient size, and/or use of iterative reconstruction technique. This report was created using Kardium report generation technology. Oral contrast was administered. Coronal and sagittal reformatted images were created and reviewed. CONTRAST: 100 mL ISOVUE-300 COMPARISON: None. FINDINGS: LOWER THORAX: Unremarkable. Lung bases are clear. No cardiomegaly. No significant pericardial effusion. ABDOMEN: LIVER: Hepatic lobe measures up to 2.0 cm likely representing a hemangioma or cyst. However, there is ill-defined low-density lesion of the left hepatic lobe on image 34 of series 2. GALLBLADDER AND BILE DUCTS: Unremarkable. No calcified gallstones. No gallbladder distention or wall edema. No intra- or extrahepatic biliary ductal dilation. PANCREAS: Unremarkable. No focal cystic or solid mass. SPLEEN: Unremarkable. Normal size without focal cystic or solid mass. ADRENALS: Unremarkable. No nodules. KIDNEYS AND URETERS: Complex cystic lesion of the anterior right kidney measuring 1.7 x 1.7 cm with enhancing septations. Normal renal size and position. No hydronephrosis. STOMACH AND BOWEL: Unremarkable. No stomach or bowel distention. No focal inflammatory change. PELVIS: APPENDIX: No evidence of acute appendicitis. BLADDER: Unremarkable. REPRODUCTIVE: Involuting follicle right ovary. Left periovarian varicosities with dilated left gonadal vein suggests possibility of pelvic congestion syndrome. ABDOMEN and PELVIS: INTRAPERITONEAL SPACE: Mild pelvic free fluid. No free air. BONES/JOINTS: Unremarkable. No suspicious lytic or blastic abnormality. SOFT TISSUES: Unremarkable. No discrete abdominal or pelvic wall hernia. VASCULATURE: See above. LYMPH NODES: Unremarkable. No enlarged lymph nodes. OTHER FINDINGS: W density lesion of the right. CT/Abdomen/Pelvis WITH Contrast IMPRESSION: 1. No acute inflammatory process or bowel obstruction. 2. Indeterminate left hepatic lobe low-density lesion. ACR White Paper guidelines (Michaela et al. JACR 2017; 14(11):4914-9661.) suggest the following. For patients with low risk of malignancy, recommend hepatic MR. For patients with high risk of malignancy (known malignancy with a propensity to metastasize to the liver, cirrhosis, and/or other hepatic risk factors), recommend hepatic MR or core biopsy. 3. Complex cystic lesion of the anterior right kidney measuring 1.7 x 1.7 cm with enhancing septations. ACR White Paper guidelines (Sara, et al. JACR 2018; 15(2):264-273) recommend MRI or CT without and with intravenous contrast. 4. Mild pelvic free fluid. Electronically Signed: Arden Gonzalez MD ([place]) at 17:26 EDT , Service support ,
--- NOTE | 2020-12-31 14:51 | EDS_ITS ---
HPI History of Present Illness Chief Complaint: Nausea/Vomiting Informant: patient Narrative Narrative: 35-year-old female presenting to the emergency department with vomiting and abdominal pain. Patient states that earlier in the week she was diagnosed with pyelonephritis at urgent care. The next day she was seen in the emergency department. Urine culture shows E. coli. Patient has been taking cefdinir and Zofran. She states she continues to vomit. She notes right lower quadrant abdominal pain and pain in the right flank. She notes continued fever. She states that she does not get any better because she cannot keep her medications down. No diarrhea. [facility] Medical History (Updated 12/31/20 @ 18:[address] Solis Bolanos DO) Anxiety and depression Heart murmur History of kidney stones History of seizures History of substance abuse Home Medications cefdinir 300 mg PO BID #20 cap 12/29/20 [Rx Last Taken 12/31/20] ondansetron HCl [Zofran] 4 mg PO Q8H #7 tab 12/29/20 [Rx Last Taken Unknown] Allergy/AdvReac Type Severity Reaction Status Date / Time No Known Allergies Allergy Verified 12/29/20 14:06 Family History Other Anxiety Depression Seizures Surgical History History of cholecystectomy Social History Smoking Status: Current every day smoker tobacco type: cigarettes alcohol intake: never substance use type: former substance user what type of physical activity do you participate in: none ROS ROS ED Constitutional Constitutional ED: Reports fever(s); Denies chills or weight loss Eyes Eyes: Denies change in vision or diplopia ENT ENT ED: Denies ear pain, rhinorrhea or sore throat Cardiovascular Cardiovascular: Denies chest pain, orthopnea, palpitations or racing heartbeat Respiratory/Chest Respiratory/Chest: Denies cough, dyspnea or orthopnea Gastrointestinal Gastrointestinal: Reports abdominal pain, nausea and vomiting; Denies diarrhea Genitourinary Genitourinary ED: Reports urinary frequency; Denies dysuria or hematuria Musculoskeletal Musculoskeletal: Denies arthralgias or myalgias Integumentary Denies abscess or rash Neurologic Neurologic: Denies headache(s) or weakness Psychiatric Psychiatric: Denies anxiety, depression, suicidal ideation or suicidal thoughts Endocrine Endocrinology: Denies polydipsia, polyphagia or polyuria Allergic/Immunologic Allergic/Immunologic ED: Denies mouth swelling, tongue swelling or urticaria EXAM Physical Exam Const Vital Signs: 12/31/20 14:07 12/31/20 14:11 12/31/20 16:24 Temperature 98.7 F 98.7 F Temperature Source Temporal Temporal Pulse Rate 98 98 67 Respiratory Rate 16 16 16 Blood Pressure 114/71 114/71 98/57 L Blood Pressure Mean 85 85 70 Pulse Ox 100 100 100 Oxygen Delivery Method Room Air Room Air Room Air Positive well nourished and well developed General Appearance ED: well developed HEENT Reports normocephalic, head/scalp atraumatic and moist mucous membranes Eyes PERRL and EOMs intact bilaterally Neck no lymphadenopathy, supple and no JVD Resp normal respiratory effort and clear to auscultation bilaterally Cardio regular rate, regular rhythm and no murmurs GI Palpation: soft and tender RLQ and LUQ Back/Spine normal ROM General Back: CVA tenderness right Extremity normal to inspection General Extremety ED: Negative for edema General Extremity: Negative for edema Neuro oriented x3 and CN's II-XII intact bilaterally Sensorium / Orientation: alert Motor Exam: strength 5/5 throughout Psych mental status grossly normal Mood & Affect: Negative for depressed or tearful Skin no rashes or lesions noted and no wounds MDM MDM MDM Narrative Medical decision making narrative: White count is 8.1 neutrophils 78.3. Lactic acid is normal. Patient's creatinine 0.52 with a BUN of 12. Shows rare bacteria 0-[address] of the abdomen pelvis with IV contrast demonstrates a 1.7 x 1.7 cm cystic lesion of the anterior right kidney with enhancing septations. Discussed the case with our urologist Dr. Fuchs. I gave the patient Rocephin. Blood cultures not obtained as the patient has been on antibiotics. Lab Data Attestation: I reviewed the patient's lab results. Labs: Laboratory Results - last 24 hr 12/31/20 12/31/20 12/31/20 14:50 14:50 14:50 WBC 8.1 RBC 3.74 L Hgb 11.3 L Hct 34.9 L MCV 93.3 MCH 30.2 MCHC 32.4 RDW Std Deviation 42.8 RDW Coeff of Luma 12.4 Plt Count 167 MPV 10.0 Immature Gran % (Auto) 0.400 Neut % (Auto) 78.3 H Lymph % (Auto) 11.2 L [place] % (Auto) 8.8 Eos % (Auto) 1.1 Baso % (Auto) 0.2 Absolute Neuts (auto) 6.3 Absolute Lymphs (auto) 0.91 Nucleated RBC % 0 Sodium 138 Potassium 3.5 Chloride 101 Carbon Dioxide 30.0 Anion Gap 7 BUN 12 Creatinine 0.52 L Estim Creat Clear Calc 120.57 Est GFR (MDRD) Af Amer 174 Est GFR (MDRD) Non-Af 143 BUN/Creatinine Ratio 23.1 H Glucose 87 Lactic Acid 0.8 Calcium 8.4 L Total Bilirubin 0.30 AST 32 ALT 13 Alkaline Phosphatase 78 Total Protein 6.9 Albumin 2.9 L Globulin 4.0 Albumin/Globulin Ratio 0.7 L Serum , Qual Urine Color Urine Clarity Urine pH Ur Specific [place] Urine Protein Urine Glucose (UA) Urine Ketones Urine Occult Blood Urine Nitrite Urine Bilirubin Urine Urobilinogen Ur Leukocyte Esterase Urine RBC Urine WBC Ur Squamous Epith Cells Urine Bacteria Urine Mucus 12/31/20 12/31/20 15:10 16:25 WBC RBC Hgb Hct MCV MCH MCHC RDW Std Deviation RDW Coeff of Luma Plt Count MPV Immature Gran % (Auto) Neut % (Auto) Lymph % (Auto) [place] % (Auto) Eos % (Auto) Baso % (Auto) Absolute Neuts (auto) Absolute Lymphs (auto) Nucleated RBC % Sodium Potassium Chloride Carbon Dioxide Anion Gap BUN Creatinine Estim Creat Clear Calc Est GFR (MDRD) Af Amer Est GFR (MDRD) Non-Af BUN/Creatinine Ratio Glucose Lactic Acid Calcium Total Bilirubin AST ALT Alkaline Phosphatase Total Protein Albumin Globulin Albumin/Globulin Ratio Serum , Qual NEGATIVE Urine Color Yellow Urine Clarity Cloudy Urine pH 6.0 Ur Specific [place] 1.015 Urine Protein 15 H Urine Glucose (UA) Normal Urine Ketones 150 A* Urine Occult Blood 10 H Urine Nitrite Negative Urine Bilirubin Negative Urine Urobilinogen 1 H Ur Leukocyte Esterase 500 H Urine RBC 0 SEEN Urine WBC 0-5 SEEN Ur Squamous Epith Cells 5-10 SEEN Urine Bacteria RARE Urine Mucus 1+ Radiography Diagnostic Testing: Clinical Impression(s) from Imaging Studies Abdomen/Pelvis CT 10/23/21 14:50 IMPRESSION: 1. No acute inflammatory process or bowel obstruction. 2. Indeterminate left hepatic lobe low-density lesion. ACR White Paper guidelines ([place], et al. JACR 2017; 14(11):2676-0658.) suggest the following. For patients with low risk of malignancy, recommend hepatic MR. For patients with high risk of malignancy (known malignancy with a propensity to metastasize to the liver, cirrhosis, and/or other hepatic risk factors), recommend hepatic MR or core biopsy. 3. Complex cystic lesion of the anterior right kidney measuring 1.7 x 1.7 cm with enhancing septations. ACR White Paper guidelines ([place], et al. JACR 2018; 15(2):264-273) recommend MRI or CT without and with intravenous contrast. 4. Mild pelvic free fluid. Electronically Signed: Arden Gonzalez MD ([place]) at 17:26 EDT , Service support , Discharge Plan Dx/Rx/DC Orders Clinical Impression: Pyelonephritis, Renal abscess, right, Vomiting Disposition Disposition: Acute Care [facility]
[2020-12-31 15:03] LABS: Absolute Lymphocyte Count 0.91 X10^3/uL (0.83-4.51); Absolute Neutrophil Count 6.3 X10^3/uL (2.0-7.7); Basophil# 0.02 X10^3/uL; Basophil% 0.2 % (0-1); Eosinophil# 0.09 X10^3/uL; Eosinophils% 1.1 % (0-5); Hematocrit 34.9 % (37-47); Hemoglobin 11.3 g/dL (12.0-15.0); Lymphocyte # 0.91 X10^3/ul (0.83-4.51); Lymphocyte % 11.2 % (19-41); Mean Corp Hgb Conc 32.4 g/dL (32-36); Mean Corpuscular Hgb 30.2 pg (27.0-32.0); Mean Corpuscular Volume 93.3 fL (81-99); Monocyte# 0.71 X10^3/uL; Monocyte% 8.8 % (0-10); NRBC Flagged by Analyzer 0 % (0-5); Neutrophil # 6.33 X10^3/uL (2.7-7.7); Neutrophil % 78.3 % (47-70); Platelet Count 167 K/mm3 (150-450); RBC Distribution Width CV 12.4 % (11.6-14.6); RBC Distribution Width SD 42.8 fl (35.1-43.9); Red Blood Count 3.74 M/mm3 (4.2-5.4); White Blood Count 8.1 K/mm3 (4.4-11.0)
[2020-12-31] MEDS: Morphine 4 MG/ML Syringe IV ×2 (15:04→18:40)
[2020-12-31] MEDS: Ondansetron 4 MG/2 ML Vial IV ×2 (15:04→20:36)
[2020-12-31] MEDS: 0.9% Normal Saline 1,000 ML 1000 ML IV (15:04)
[2020-12-31 15:18] LABS: ALB/GLOB Ratio 0.7 RATIO (0.9-2.4); AST(SGOT) 32 U/L (15-37); Alanine Aminotransfer ALT/SGPT 13 U/L (13-56); Albumin, Serum 2.9 g/dL (3.2-5.0); Alkaline Phosphatase 78 U/L (45-117); Anion Gap 7 (5-15); BUN 12 mg/dL (7-18); BUN/Creat Ratio 23.1 RATIO (10-20); Calcium,Total 8.4 mg/dL (8.5-10.1); Chloride 101 mmol/L (98-107); Creatinine, Serum 0.52 mg/dL (0.55-1.02); EST Glomerular Filtration Rate 143 mL/min (>60); Est Glom Filt Rate - Afr Amer 174 mL/min (>60); Estimated Creatinine Clearance 120.57 ml/min; Glucose 87 mg/dL (74-106); Potassium 3.5 mmol/L (3.5-5.1); Protein, Total 6.9 g/dL (6.4-8.2); Sodium Level 138 mmol/L (136-145)
[2020-12-31 15:29] LABS: Lactic Acid 0.8 mmol/L (0.4-1.9)
[2020-12-31 15:30] LABS: Internal QC Validated? YES +Cl - CLEAR BKGD; Pregnancy, Serum, hCG Quali. NEGATIVE Negative
[2020-12-31 16:24] VITALS: BP 98/57; PULSE 67; RESP 16; O2SAT 100
[2020-12-31 16:37] LABS: Red Blood Cells-Urine 0 SEEN /hpf (0-5)
[2020-12-31 16:41] LABS: Color, Urine Yellow (Yellow); Glucose, Dipstick Normal (Normal); Leukocyte Esterase-Dipstick 500 /ul (Negative); Nitrite-Dipstick Negative (Negative); Occult Blood-Urine 10 /ul (Negative); Protein-Dipstick 15 mg/dl (Negative); Specific Gravity, Urine 1.015 (1.002-1.030); Urine Bilirubin Dipstick Negative (Negative); Urine Clarity Cloudy (Clear); Urine Urobilinogen 1 mg/dl (Normal)
[2020-12-31 16:43] LABS: Ketone-Dipstick 150 mg/dl (Negative)
[2020-12-31 16:51] LABS: Bacteria RARE /hpf (None Seen); Mucous, Urine 1+ /hpf (<or=2+); Squamous Epithelial Cells - UA 5-10 SEEN /hpf (5-10); White Blood Cells 0-5 SEEN /hpf (0-5)
--- NOTE | 2020-12-31 18:40 | PCM.HP.STD ---
HPI - General General Date of Admission: 12/31/20 Date of Service: 12/31/20 Chief Complaint: Right flank pain HPI Narrative JETHRO ANTOINE, is a 35 F who presented to the emergency department at [facility] on 12/31/2020 complaining of worsening right flank pain. She started having urinary tract symptoms last week but her dysuria resolved but unfortunately she then developed some mild right abdominal/flank pain on Saturday and went to an urgent care on of this past week. She had had a fever prior to that and had a urinalysis done that was consistent with UTI. Urine culture was done at that time and actually grew back fairly sensitive E. coli. In the emergency department she was placed on cefdinir and given Zofran for her nausea and discharged home. Since that point time she had had progressively worsening right-sided flank pain with nausea and vomiting to the point she has been unable to keep down fluids or her medications. She has had continued fever but no other associated symptoms. She was afebrile in the emergency department and hemodynamically stable. Her CBC showed no leukocytosis but a mild anemia with a hemoglobin of 11.3 and a left shift. Her BMP showed normal electrolytes and renal function. Her lactic acid was within normal limits. Her liver functions are normal. Her test was negative. Her UA is consistent with infection and she has ketones present. Given her marked flank pain a CT of her abdomen and pelvis was performed and showed no acute inflammatory process in the bowel, an indeterminate left hepatic low-density lesion with recommended MR follow-up and a right anterior 1.7 x 1.7 cm renal abscess. She was given ceftriaxone in the emergency department and the case was discussed with urology who recommended admission and possible IR drainage. [facility] Medical History (Updated 12/31/20 @ 18:[address] Trinidad Swenson, ) Anxiety and depression Heart murmur History of kidney stones History of seizures History of substance abuse Home Medications cefdinir 300 mg PO BID #20 cap 12/29/20 [Rx Last Taken 12/31/20] ondansetron HCl [Zofran] 4 mg PO Q8H #7 tab 12/29/20 [Rx Last Taken Unknown] Allergy/AdvReac Type Severity Reaction Status Date / Time No Known Allergies Allergy Verified 12/29/20 14:06 Family History (Updated 12/31/20 @ 18:[address] Trinidad Swenson DO) Other Anxiety Depression Hypertension Seizures Surgical History History of cholecystectomy Social History (Updated 12/31/20 @ 19:[address] Trinidad Swenson DO) Smoking Status: Former smoker alcohol intake: never substance use type: former substance user what type of physical activity do you participate in: none ROS Constitutional Constitutional: Reports anorexia, chills and fever(s); Denies change in weight, fatigue, malaise, night sweats, weakness or other Eyes Eyes: Denies blurry vision, change in eye color, change in vision, discharge from eye(s), double vision, erythema, eye pain, loss of vision or other ENT HEENT: Denies abnormal hearing, dysphagia, ear pain, epistaxis, headache(s), hearing loss, nasal congestion, nasal discharge, post nasal drip, sinus pressure, sore throat or other Cardiovascular Cardiovascular: Denies chest pain, claudication, dyspnea on exertion, edema, lightheadedness, orthopnea, palpitations, paroxysmal nocturnal dyspnea, rapid heart rate, syncope or other Respiratory/Chest Respiratory/Chest: Denies cough, dyspnea, excessive phlegm production, hemoptysis, productive cough, shortness of breath at rest, shortness of breath with exertion, wheezing or other Gastrointestinal Gastrointestinal: Reports nausea and vomiting; Denies abdominal pain, coffee ground emesis, constipation, diarrhea, dyspepsia, hematemesis, hematochezia, loose stools, melena or other Genitourinary Genitourinary: Reports urinary frequency, urinary incontinence and other Details: Right flank pain Musculoskeletal Musculoskeletal: Reports back pain; Denies arthralgias, joint pain, joint stiffness, joint swelling, myalgias, neck pain or other Neurologic Neurologic: Denies abnormal gait, abnormal speech, confusion, disequilibrium, dizziness, focal weakness, headache(s), numbness, paresthesias, seizure-like activity, seizures, syncope, tingling, tremor(s) or other Psychiatric Psychiatric: Denies anxiety, depression, homicidal ideation, suicidal ideation or other Endocrine Endocrinology: Denies change in body appearance, cold intolerance, excessive sweating, heat intolerance, polydipsia, polyuria or other Hematologic/Lymphatic Hematologic/Lymphatic: Denies anemia, easy bleeding, easy bruising, lymphadenopathy or other Allergic/Immunologic Allergic/Immunologic: Denies rhinitis, hives, eczemia, asthma or other Vital Signs Vital Signs Vital Signs: 12/31/20 14:07 12/31/20 14:11 12/31/20 16:24 Temperature 98.7 F 98.7 F Temperature Source Temporal Temporal Pulse Rate 98 98 67 Respiratory Rate 16 16 16 Blood Pressure 114/71 114/71 98/57 L Blood Pressure Mean 85 85 70 Pulse Ox 100 100 100 Oxygen Delivery Method Room Air Room Air Room Air Weight Weight: 65.317 kg Body Mass Index (BMI) 26.3 Physical Exam Const alert, oriented x3 and no apparent distress Constitutional Narrative: Normal weight middle-aged white female lying on her left side on the bed, appears uncomfortable but nontoxic, no distress General Appearance: cooperative HEENT normocephalic, head/scalp atraumatic, hearing grossly normal bilaterally, moist oral mucous membranes, oropharynx normal and dentition normal Mouth: oral and palatal mucosa normal Eyes PERRL, EOMs intact bilaterally and conjunctivae normal Eyes Narrative: No scleral icterus Neck no lymphadenopathy, supple and no JVD Neck Narrative: Trachea midline, no thyroid enlargement Resp normal respiratory effort, no retractions, no use of accessory muscles and clear to auscultation bilaterally Auscultation: Negative for crackles, rales, rhonchi or wheezes Cardio regular rate, regular rhythm, S1 normal heart sound, S2 normal heart sound, no murmurs, no rub, no gallops, no clicks and no JVD GI normal to inspection, nondistended, normoactive bowel sounds, soft to palpation and non-distended Palpation: tender other (Right flank) and guarding Extremity normal to inspection and no clubbing, cyanosis or edema Peripheral Pulses: Yes pulses 2+ throughout Skin no rashes or lesions noted, no wounds, skin turgor normal, no jaundice, no petechiae and no mottling Skin Narrative: Multiple tattoos Neuro oriented x3, CN's II-XII intact bilaterally, moves all extremities and no focal motor deficits Sensorium / Orientation: awake, alert, oriented to person, oriented to place and oriented to time Speech: speech normal Motor Exam: strength 5/5 throughout Psych affect normal Results Lab / Micro Data Attestation: I reviewed the patient's lab results. Result Diagrams: 12/31/20 14:50 12/31/20 14:50 Labs: Laboratory Results - last 24 hr 12/31/20 14:50: WBC 8.1, RBC 3.74 L, Hgb 11.3 L, Hct 34.9 L, MCV 93.3, MCH 30.2, MCHC 32.4, RDW Std Deviation 42.8, RDW Coeff of Luma 12.4, Plt Count 167, MPV 10.0, Immature Gran % (Auto) 0.400, Neut % (Auto) 78.3 H, Lymph % (Auto) 11.2 L, [place] % (Auto) 8.8, Eos % (Auto) 1.1, Baso % (Auto) 0.2, Absolute Neuts (auto) 6.3, Absolute Lymphs (auto) 0.91, Nucleated RBC % 0 12/31/20 14:50: Sodium 138, Potassium 3.5, Chloride 101, Carbon Dioxide 30.0, Anion Gap 7, BUN 12, Creatinine 0.52 L, Estim Creat Clear Calc 120.57, Est GFR (MDRD) Af Amer 174, Est GFR (MDRD) Non-Af 143, BUN/Creatinine Ratio 23.1 H, Glucose 87, Calcium 8.4 L, Total Bilirubin 0.30, AST 32, ALT 13, Alkaline Phosphatase 78, Total Protein 6.9, Albumin 2.9 L, Globulin 4.0, Albumin/Globulin Ratio 0.7 L 12/31/20 14:50: Lactic Acid 0.8 12/31/20 15:10: Serum , Qual NEGATIVE 12/31/20 16:25: Urine Color Yellow, Urine Clarity Cloudy, Urine pH 6.0, Ur Specific [place] 1.015, Urine Protein 15 H, Urine Glucose (UA) Normal, Urine Ketones 150 A*, Urine Occult Blood 10 H, Urine Nitrite Negative, Urine Bilirubin Negative, Urine Urobilinogen 1 H, Ur Leukocyte Esterase 500 H, Urine RBC 0 SEEN, Urine WBC 0-5 SEEN, Ur Squamous Epith Cells 5-10 SEEN, Urine Bacteria RARE, Urine Mucus 1+ Radiology Impression Abdomen/Pelvis CT 12/31/20 14:50 IMPRESSION: 1. No acute inflammatory process or bowel obstruction. 2. Indeterminate left hepatic lobe low-density lesion. ACR White Paper guidelines (Michaela, et al. JACR 2017; 14(11):0558-5493.) suggest the following. For patients with low risk of malignancy, recommend hepatic MR. For patients with high risk of malignancy (known malignancy with a propensity to metastasize to the liver, cirrhosis, and/or other hepatic risk factors), recommend hepatic MR or core biopsy. 3. Complex cystic lesion of the anterior right kidney measuring 1.7 x 1.7 cm with enhancing septations. ACR White Paper guidelines (Herkelechi, et al. JACR 2018; 15(2):264-273) recommend MRI or CT without and with intravenous contrast. 4. Mild pelvic free fluid. Electronically Signed: Arden Gonzalez MD ([place]) at 17:26 EDT , Service support , Assessment & Plan Assessment/Plan (1) Renal abscess, right: (2) Pyelonephritis: (3) Intractable nausea and vomiting: PLAN: Acute E. coli right pyelonephritis/renal abscess -Start ceftriaxone -Pain management with Dilaudid -Possible switch to orals tomorrow depending on oral tolerance -Antiemetics -IV fluids with normal saline at 75 cc/h -Consultation to urology Intractable nausea and vomiting -Suspect related to acute infection -Antiemetics -IV fluids -Regular diet but discussed with patient and recommended liquids to start with progression as her symptoms improved Mild normocytic anemia -Suspect related to infection -We will continue to monitor counts Abnormal liver lesion -Recommend outpatient follow-up with MR History of polysubstance abuse -Patient denies any current use -Per documentation patient does have a history of oral narcotics, methamphetamines and Xanax abuse -Would be cautious about discharging patient with opiates -Recent admissions here for opiate abuse as recent as 2019 History of anxiety and depression -Currently takes no medications DVT prophylaxis -Early ambulation protocol -SCDs CODE STATUS -Full code Charges/Coding Visit Charges Inpatient E&M: 04450 Init Hosp L3
[2020-12-31 18:41] VITALS: BP 108/63; PULSE 69; RESP 18; TEMP 36.7; O2SAT 100
--- NOTE | 2020-12-31 19:30 | PCS.PANDOC ---
PANDEMIC DOCUMENTATION INITIATED: Date: 10/24/2020 Time: 1900 Emergency documentation initiated 12/31/20 @ 1930
[2020-12-31 19:34] VITALS: BP 113/68; PULSE 71; RESP 18; TEMP 36.8; O2SAT 94
[2020-12-31 19:36] VITALS: BMI 26.9
[2020-12-31] MEDS: 0.9% Normal Saline 1,000 ML 75 ML IV (19:57)
[2020-12-31] MEDS: 0.9% Saline Lock 10 ML Syringe IV (19:58)
[2020-12-31] MEDS: HYDROmorphone 0.5 MG/0.5 ML SYRINGE IV (20:37)
[2021-01-01 02:39] VITALS: BP 103/53; PULSE 68; RESP 16; TEMP 36.6; O2SAT 95
[2021-01-01] MEDS: HYDROmorphone 0.5 MG/0.5 ML SYRINGE IV ×5 (02:42→20:58)
[2021-01-01 05:45] LABS: Absolute Lymphocyte Count 1.38 X10^3/uL (0.83-4.51); Absolute Neutrophil Count 2.9 X10^3/uL (2.0-7.7); Basophil# 0.02 X10^3/uL; Basophil% 0.4 % (0-1); Eosinophil# 0.16 X10^3/uL; Eosinophils% 3.2 % (0-5); Hematocrit 31.9 % (37-47); Hemoglobin 10.1 g/dL (12.0-15.0); Lymphocyte # 1.38 X10^3/ul (0.83-4.51); Lymphocyte % 27.4 % (19-41); Mean Corp Hgb Conc 31.7 g/dL (32-36); Mean Corpuscular Hgb 29.8 pg (27.0-32.0); Mean Corpuscular Volume 94.1 fL (81-99); Mean Platelet Vol. 10.1 fl (6.2-12.0); Monocyte# 0.54 X10^3/uL; Monocyte% 10.7 % (0-10); NRBC Flagged by Analyzer 0 % (0-5); Neutrophil # 2.92 X10^3/uL (2.7-7.7); Neutrophil % 57.9 % (47-70); Platelet Count 159 K/mm3 (150-450); RBC Distribution Width CV 12.5 % (11.6-14.6); RBC Distribution Width SD 43.6 fl (35.1-43.9); Red Blood Count 3.39 M/mm3 (4.2-5.4)
[2021-01-01 05:57] LABS: Anion Gap 7 (5-15); BUN 10 mg/dL (7-18); BUN/Creat Ratio 26.5 RATIO (10-20); Calcium,Total 7.8 mg/dL (8.5-10.1); Chloride 104 mmol/L (98-107); Creatinine, Serum 0.38 mg/dL (0.55-1.02); EST Glomerular Filtration Rate 207 mL/min (>60); Est Glom Filt Rate - Afr Amer 251 mL/min (>60); Estimated Creatinine Clearance 164.99 ml/min; Glucose 89 mg/dL (74-106); Magnesium 1.9 mg/dL (1.6-2.6); Phosphorus 2.8 mg/dL (2.5-4.9); Potassium 3.5 mmol/L (3.5-5.1); Sodium Level 140 mmol/L (136-145)
[2021-01-01] MEDS: 0.9% Saline Lock 10 ML Syringe IV ×5 (07:56→20:58)
[2021-01-01] MEDS: Ondansetron 4 MG/2 ML Vial IV (07:58)
[2021-01-01 08:00] VITALS: BP 103/61; PULSE 73; RESP 14; TEMP 36.8; O2SAT 100
[2021-01-01] MEDS: 0.9% Normal Saline 1,000 ML 75 ML IV ×2 (08:02→21:38)
--- NOTE | 2021-01-01 11:08 | PCM.PN.HOSP ---
Subjective Subjective Patient states she feels pretty rough still. Still having nausea but no vomiting. Was able to drink a little bit of clear liquids. Pain is manageable with the Dilaudid that is ordered. Tolerating IV antibiotics well. Objective Data Objective Data Vital Signs: Vital Signs Temp Pulse Resp BP Pulse Ox 98.2 F 73 14 103/61 100 01/01/21 08:00 01/01/21 08:00 01/01/21 08:00 01/01/21 08:00 01/01/21 08:00 Oxygen Delivery Method Room Air Weight: 66.7 kg Body Mass Index (BMI) 26.9 Intake & Output: Intake and Output for Last 24 Hours 12/30/20 12/31/20 01/01/21 23:59 23:59 23:59 Intake Total 1050 / 1450 1606.25 / 1606.25 Balance 1050 / 1450 1606.25 / 1606.25 Lab / Micro Data Result Diagrams: 01/01/21 05:19 01/01/21 05:19 Labs: Laboratory Results - last 24 hr 12/31/20 14:50: WBC 8.1, RBC 3.74 L, Hgb 11.3 L, Hct 34.9 L, MCV 93.3, MCH 30.2, MCHC 32.4, RDW Std Deviation 42.8, RDW Coeff of Luma 12.4, Plt Count 167, MPV 10.0, Immature Gran % (Auto) 0.400, Neut % (Auto) 78.3 H, Lymph % (Auto) 11.2 L, [place] % (Auto) 8.8, Eos % (Auto) 1.1, Baso % (Auto) 0.2, Absolute Neuts (auto) 6.3, Absolute Lymphs (auto) 0.91, Nucleated RBC % 0 12/31/20 14:50: Sodium 138, Potassium 3.5, Chloride 101, Carbon Dioxide 30.0, Anion Gap 7, BUN 12, Creatinine 0.52 L, Estim Creat Clear Calc 120.57, Est GFR (MDRD) Af Amer 174, Est GFR (MDRD) Non-Af 143, BUN/Creatinine Ratio 23.1 H, Glucose 87, Calcium 8.4 L, Total Bilirubin 0.30, AST 32, ALT 13, Alkaline Phosphatase 78, Total Protein 6.9, Albumin 2.9 L, Globulin 4.0, Albumin/Globulin Ratio 0.7 L 12/31/20 14:50: Lactic Acid 0.8 12/31/20 15:10: Serum , Qual NEGATIVE 12/31/20 16:25: Urine Color Yellow, Urine Clarity Cloudy, Urine pH 6.0, Ur Specific [place] 1.015, Urine Protein 15 H, Urine Glucose (UA) Normal, Urine Ketones 150 A*, Urine Occult Blood 10 H, Urine Nitrite Negative, Urine Bilirubin Negative, Urine Urobilinogen 1 H, Ur Leukocyte Esterase 500 H, Urine RBC 0 SEEN, Urine WBC 0-5 SEEN, Ur Squamous Epith Cells 5-10 SEEN, Urine Bacteria RARE, Urine Mucus 1+ 01/01/21 05:19: WBC 5.0, RBC 3.39 L, Hgb 10.1 L, Hct 31.9 L, MCV 94.1, MCH 29.8, MCHC 31.7 L, RDW Std Deviation 43.6, RDW Coeff of Luma 12.5, Plt Count 159, MPV 10.1, Immature Gran % (Auto) 0.400, Neut % (Auto) 57.9, Lymph % (Auto) 27.4, [place] % (Auto) 10.7 H, Eos % (Auto) 3.2, Baso % (Auto) 0.4, Absolute Neuts (auto) 2.9, Absolute Lymphs (auto) 1.38, Nucleated RBC % 0 01/01/21 05:19: Sodium 140, Potassium 3.5, Chloride 104, Carbon Dioxide 29.0, Anion Gap 7, BUN 10, Creatinine 0.38 L, Estim Creat Clear Calc 164.99, Est GFR (MDRD) Af Amer 251, Est GFR (MDRD) Non-Af 207, BUN/Creatinine Ratio 26.5 H, Glucose 89, Calcium 7.8 L, Phosphorus 2.8, Magnesium 1.9 Radiography Diagnostic Testing: Radiology Impression Abdomen/Pelvis CT 12/31/20 14:50 IMPRESSION: 1. No acute inflammatory process or bowel obstruction. 2. Indeterminate left hepatic lobe low-density lesion. ACR White Paper guidelines (Michaela et al. JACR 2017; 14(11):5572-2453.) suggest the following. For patients with low risk of malignancy, recommend hepatic MR. For patients with high risk of malignancy (known malignancy with a propensity to metastasize to the liver, cirrhosis, and/or other hepatic risk factors), recommend hepatic MR or core biopsy. 3. Complex cystic lesion of the anterior right kidney measuring 1.7 x 1.7 cm with enhancing septations. ACR White Paper guidelines (Herkelechi, et al. JACR 2018; 15(2):264-273) recommend MRI or CT without and with intravenous contrast. 4. Mild pelvic free fluid. Electronically Signed: Arden Gonzalez MD ([place]) at 17:26 EDT , Service support , Physical Exam Const alert, oriented x3 and no apparent distress Constitutional Narrative: Normal weight middle-aged white female lying on her left side on the bed, appears uncomfortable but nontoxic, no distress General Appearance: cooperative Exam Limitations: no limitations Nutritional Appearance: overweight HEENT normocephalic, head/scalp atraumatic, hearing grossly normal bilaterally and moist oral mucous membranes Head and Scalp: normocephalic Resp normal respiratory effort, no retractions, no use of accessory muscles and clear to auscultation bilaterally Auscultation: Negative for crackles, rales, rhonchi or wheezes Cardio regular rate, regular rhythm, S1 normal heart sound, S2 normal heart sound, no murmurs, no rub, no gallops, no clicks and no JVD GI normal to inspection, nondistended, normoactive bowel sounds, soft to palpation and non-distended Palpation: tender other (Right flank) and guarding Extremity normal to inspection and no clubbing, cyanosis or edema Peripheral Pulses: Yes pulses 2+ throughout Neuro oriented x3, moves all extremities and no focal motor deficits Sensorium / Orientation: awake and alert Speech: speech normal Assessment & Plan Assessment/Plan (1) Renal abscess, right: (2) Pyelonephritis: (3) Intractable nausea and vomiting: PLAN: Acute E. coli right pyelonephritis/renal abscess -Continue ceftriaxone -Continue IV Dilaudid -Possible switch to orals once nausea has improved -Antiemetics -Continue IV fluids with normal saline at 75 cc/h -May need to reconsider repeat CT scan if pain is not improving in the next 24 hours -Consultation to urology is pending Intractable nausea and vomiting -Suspect related to acute infection -Continue Zofran and will add Compazine as patient is having some breakthrough nausea -IV fluids -Regular diet but discussed with patient and recommended liquids to start with progression as her symptoms improved Mild normocytic anemia -Suspect related to infection and hemodilution -We will continue to monitor counts Abnormal liver lesion -Recommend outpatient follow-up with MR History of polysubstance abuse -Patient denies any current use -Per documentation patient does have a history of oral narcotics, methamphetamines and Xanax abuse -Would be cautious about discharging patient with opiates -Recent admissions here for opiate abuse as recent as 2018 History of anxiety and depression -Currently takes no medications DVT prophylaxis -Early ambulation protocol -SCDs CODE STATUS -Full code Charges/Coding Visit Charges Inpatient E&M: 86378 Subs Hosp L2
[2021-01-01] MEDS: proCHLORPERazine 10 MG/2 ML Vial IV ×2 (11:10→17:16)
[2021-01-01 14:00] VITALS: BP 92/59; PULSE 70; RESP 14; TEMP 36.6; O2SAT 98
--- NOTE | 2021-01-01 16:54 | CON.PCM_ITS ---
Assessment & Plan Assessment/Plan (1) Renal abscess, right: (2) Pyelonephritis: (3) Intractable nausea and vomiting: PLAN: With the initial CT being done with IV contrast only, I feel a CT scan without contrast to further evaluate for possibility of stone involvement would be helpful. If this is not helpful, we could then consider an MRI. There is no hydronephrosis present. If her white blood count were abnormal, a case could be made for drainage, but the location of this lesion is very anterior and this would be quite difficult. Given the fact that she is stable and afebrile since admission, I agree with supportive care, intravenous antibiotic administration and repeat imaging, following blood work and exams. She denies current drug abuse, but this is known to sometimes be associated with renal abscesses. I will follow with you. HPI Consult Data Date of Consult: 01/01/21 HPI Narrative HPI Narrative: JETHRO ANTOINE, is a 35 F who is admitted to the hospital from the emergency department for intractable right upper quadrant and flank pain associated with nausea and vomiting. She had been seen in the emergency department a few times previous to this within the last week and was being treated for urinary tract infection. She denies any recent drug use. She does have a history of pyelonephritis in the past but denies kidney stone. Today she continues to have pain and nausea. [facility] Medical History Anxiety and depression Heart murmur History of kidney stones History of seizures History of substance abuse Home Medications cefdinir 300 mg PO BID #20 cap 12/29/20 [Rx Last Taken 12/31/20] ondansetron HCl [Zofran] 4 mg PO Q8H #7 tab 12/29/20 [Rx Last Taken 12/31/20] Allergy/AdvReac Type Severity Reaction Status Date / Time No Known Allergies Allergy Verified 12/29/20 14:06 Family History Other Anxiety Depression Hypertension Seizures Surgical History History of cholecystectomy Social History Smoking Status: Current every day smoker tobacco type: e-cigarettes alcohol intake: never substance use type: former substance user what type of physical activity do you participate in: none ROS Constitutional Constitutional: Reports body ache(s), chills and fever(s) Eyes Eyes: Denies change in vision ENT HEENT: Reports systems reviewed and no addt'l complaints, except as documented Cardiovascular Cardiovascular: Reports abdominal pain; Denies chest pain or dyspnea Respiratory/Chest Respiratory/Chest: Denies change in mental status, chest tightness or cough Gastrointestinal Gastrointestinal: Reports abdominal pain, anorexia, nausea and vomiting Genitourinary Genitourinary: Reports abdominal discomfort and flank pain; Denies dysuria, hematuria, nocturia, urinary frequency or urinary urgency Musculoskeletal Musculoskeletal: Reports systems reviewed and no addt'l complaints, except as documented Integumentary Integumentary: Reports systems reviewed and no addt'l complaints, except as documented Neurologic Neurologic: Reports systems reviewed and no addt'l complaints, except as documented Psychiatric Psychiatric: Reports systems reviewed and no addt'l complaints, except as documented Endocrine Endocrinology: Reports systems reviewed and no addt'l complaints, except as documented Hematologic/Lymphatic Hematologic/Lymphatic: Reports systems reviewed and no addt'l complaints, except as documented Physical Exam Const alert, oriented x3 and no apparent distress General Appearance: cooperative, comfortable and well developed HEENT hearing grossly normal bilaterally Head and Scalp: normal to inspection, normocephalic and atraumatic Face and Sinus: face symmetric Nose: external nose normal External Ear: external ears normal Mouth: lips normal Eyes General Eye: normal appearance of both eyes Neck General: trachea midline Chest Chest: symmetrical chest wall rise Resp normal respiratory effort, normal air movement, no retractions and no use of accessory muscles Effort and Inspection: able to speak in complete sentences and symmetric chest movement Cardio regular rate and regular rhythm GI soft to palpation, non-distended and no masses Palpation: tender RUQ; Negative for guarding or rigid Bladder / Kidney Exam: No catheter in place and CVA tenderness right Back/Spine General Back: CVA tenderness right Skin no rashes or lesions noted, no wounds, skin turgor normal, no petechiae and no mottling Neuro oriented x3, CN's II-XII intact bilaterally and moves all extremities Psych mental status grossly normal, thought process normal, cooperative and affect normal Lab / Micro Data Result Diagrams: 01/01/21 05:19 01/01/21 05:19 Labs: Laboratory Results - last 24 hr 01/01/21 05:19: WBC 5.0, RBC 3.39 L, Hgb 10.1 L, Hct 31.9 L, MCV 94.1, MCH 29.8, MCHC 31.7 L, RDW Std Deviation 43.6, RDW Coeff of Luma 12.5, Plt Count 159, MPV 10.1, Immature Gran % (Auto) 0.400, Neut % (Auto) 57.9, Lymph % (Auto) 27.4, [place] % (Auto) 10.7 H, Eos % (Auto) 3.2, Baso % (Auto) 0.4, Absolute Neuts (auto) 2.9, Absolute Lymphs (auto) 1.38, Nucleated RBC % 0 01/01/21 05:19: Sodium 140, Potassium 3.5, Chloride 104, Carbon Dioxide 29.0, Anion Gap 7, BUN 10, Creatinine 0.38 L, Estim Creat Clear Calc 164.99, Est GFR (MDRD) Af Amer 251, Est GFR (MDRD) Non-Af 207, BUN/Creatinine Ratio 26.5 H, Gluc ose 89, Calcium 7.8 L, Phosphorus 2.8, Magnesium 1.9 Radiology Impression Abdomen/Pelvis CT 12/31/20 14:50 IMPRESSION: 1. No acute inflammatory process or bowel obstruction. 2. Indeterminate left hepatic lobe low-density lesion. ACR White Paper guidelines ([place], et al. JACR 2017; 14(11):5192-0729.) suggest the following. For patients with low risk of malignancy, recommend hepatic MR. For patients with high risk of malignancy (known malignancy with a propensity to metastasize to the liver, cirrhosis, and/or other hepatic risk factors), recommend hepatic MR or core biopsy. 3. Complex cystic lesion of the anterior right kidney measuring 1.7 x 1.7 cm with enhancing septations. ACR White Paper guidelines (Herkelechi, et al. JACR 2018; 15(2):264-273) recommend MRI or CT without and with intravenous contrast. 4. Mild pelvic free fluid. Electronically Signed: Arden Gonzalez MD ([place]) at 17:26 EDT , Service support ,
--- NOTE | 2021-01-01 17:05 | CT_ITS ---
STUDY: CT ABDOMEN AND PELVIS WITH AND WITHOUT CONTRAST REASON FOR EXAM: Female, 35 years old. Right renal abscess RADIATION DOSAGE (If Supplied By Facility): CTDIvol = ( 14.01 ) mGy, DLP = ( 1664.55 ) mGycm TECHNIQUE: Transaxial images were obtained from the dome of the diaphragm to the symphysis pubis without oral contrast. IV 100mL Isovue-370 was administered. Sagittal and coronal images were reconstructed. Individualized dose optimization techniques were used for this CT. COMPARISON: 31 December 2020, 29 March 2019 FINDINGS: There is a small left pleural effusion and bilateral atelectasis. Normal liver with a presumed hemangioma in segment 7 and segment 2/3 1 cm lesion.. Normal gallbladder and extrahepatic biliary system. Normal spleen. Normal pancreas. Normal bilateral adrenal glands. Right kidney contains an ill-defined 1.3 cm anterior cortical lesion. The lesion potentially enhances but is not well seen. Contralateral left kidney is normal. Normal visualized stomach. Normal small intestine. Normal colon. The appendix is visualized and appears normal. Normal abdominal aorta. Normal inferior vena cava. Normal retroperitoneum. Normal urinary bladder. There is free fluid in the pelvis. Normal abdominal wall. Normal osseous structures. CT/CT Abd/Pelvis W/WO Contrast IMPRESSION: 1. No renal abscess. No pyelonephritis. 2. Incompletely characterized right upper pole low risk renal lesion. This can be followed up with elective MR of the kidneys in 6 months. 3. Presumed benign hepatic hemangiomata.. This can be simultaneously evaluated at the time of above recommended MRI. Electronically Signed: Kanchan Bar MD at 19:25 EDT Tel , Service support ,
[2021-01-01 21:44] VITALS: BP 100/58; PULSE 70; RESP 16; TEMP 36.8; O2SAT 100
[2021-01-02] MEDS: HYDROmorphone 0.5 MG/0.5 ML SYRINGE IV ×3 (02:00→11:26)
[2021-01-02] MEDS: 0.9% Saline Lock 10 ML Syringe IV ×3 (02:00→20:49)
[2021-01-02 02:03] VITALS: BP 101/62; PULSE 73; RESP 16; TEMP 36.7; O2SAT 99
[2021-01-02 06:58] LABS: Absolute Lymphocyte Count 1.21 X10^3/uL (0.83-4.51); Absolute Neutrophil Count 2.6 X10^3/uL (2.0-7.7); Basophil# 0.03 X10^3/uL; Basophil% 0.7 % (0-1); Eosinophil# 0.15 X10^3/uL; Eosinophils% 3.4 % (0-5); Hematocrit 31.9 % (37-47); Hemoglobin 10.1 g/dL (12.0-15.0); Lymphocyte # 1.21 X10^3/ul (0.83-4.51); Lymphocyte % 27.3 % (19-41); Mean Corp Hgb Conc 31.7 g/dL (32-36); Mean Corpuscular Hgb 29.7 pg (27.0-32.0); Mean Corpuscular Volume 93.8 fL (81-99); Mean Platelet Vol. 10.7 fl (6.2-12.0); Monocyte# 0.38 X10^3/uL; Monocyte% 8.6 % (0-10); NRBC Flagged by Analyzer 0 % (0-5); Neutrophil # 2.64 X10^3/uL (2.7-7.7); Neutrophil % 59.5 % (47-70); Platelet Count 162 K/mm3 (150-450); RBC Distribution Width SD 44.6 fl (35.1-43.9); White Blood Count 4.4 K/mm3 (4.4-11.0)
[2021-01-02 07:17] LABS: Anion Gap 7 (5-15); BUN 6 mg/dL (7-18); BUN/Creat Ratio 15.6 RATIO (10-20); Calcium,Total 8.1 mg/dL (8.5-10.1); Chloride 106 mmol/L (98-107); Creatinine, Serum 0.38 mg/dL (0.55-1.02); EST Glomerular Filtration Rate 203 mL/min (>60); Est Glom Filt Rate - Afr Amer 246 mL/min (>60); Estimated Creatinine Clearance 164.99 ml/min; Glucose 94 mg/dL (74-106); Potassium 3.6 mmol/L (3.5-5.1); Sodium Level 141 mmol/L (136-145)
[2021-01-02] MEDS: Ondansetron 4 MG/2 ML Vial IV (07:54)
[2021-01-02 08:03] VITALS: BP 119/62; PULSE 76; RESP 16; TEMP 37.1; O2SAT 96
--- NOTE | 2021-01-02 10:56 | CASEMGMT ---
SW met w/pt in room in regard to history of depression and anxiety, and history of substance abuse. Pt is managing fine, is not having symptoms of depression or anxiety at this time. She is not in counseling at present, states she has a counselor she can go in and see should she need to do so. In regard to substance abuse, pt has been clean for one year, 7 and a half months. Pt smiled as she said this. Pt declines any need for support or referrals at this time. SW remains available should any needs arise. LESLEE Rodriguez
--- NOTE | 2021-01-02 10:58 | PN.URO_ITS ---
Subjective Subjective Still with pain, slowly improving. Nausea is also improved, really only in the morning. Understands the importance of follow up. Will plan to further discuss infection prevention and work up in the office in 1-2 weeks. Objective Data Objective Data Vital Signs: Vital Signs Temp Pulse Resp BP Pulse Ox 98.8 F 76 16 119/62 96 01/02/21 08:03 01/02/21 08:03 01/02/21 08:03 01/02/21 08:03 01/02/21 08:03 Oxygen Delivery Method Room Air Weight: 66.7 kg Body Mass Index (BMI) 26.9 Intake & Output: Intake and Output for Last 24 Hours 12/31/20 01/01/21 01/02/21 23:59 23:59 23:59 Intake Total 1050 / 1450 2666.25 / 2666.25 Balance 1050 / 1450 2666.25 / 2666.25 Lab / Micro Data Attestation: I reviewed the patient's lab results. Result Diagrams: 01/02/21 04:55 01/02/21 04:55 Labs: Laboratory Results - last 24 hr 01/02/21 04:55: WBC 4.4, RBC 3.40 L, Hgb 10.1 L, Hct 31.9 L, MCV 93.8, MCH 29.7, MCHC 31.7 L, RDW Std Deviation 44.6 H, RDW Coeff of Luma 13.0, Plt Count 162, MPV 10.7, Immature Gran % (Auto) 0.500, Neut % (Auto) 59.5, Lymph % (Auto) 27.3, [place] % (Auto) 8.6, Eos % (Auto) 3.4, Baso % (Auto) 0.7, Absolute Neuts (auto) 2.6, Absolute Lymphs (auto) 1.21, Nucleated RBC % 0 01/02/21 04:55: Sodium 141, Potassium 3.6, Chloride 106, Carbon Dioxide 28.0, Anion Gap 7, BUN 6 L, Creatinine 0.38 L, Estim Creat Clear Calc 164.99, Est GFR (MDRD) Af Amer 246, Est GFR (MDRD) Non-Af 203, BUN/Creatinine Ratio 15.6, Glucose 94, Calcium 8.1 L Radiography Diagnostic Testing: Radiology Impression Abdomen/Pelvis CT 01/01/21 17:05 IMPRESSION: 1. No renal abscess. No pyelonephritis. 2. Incompletely characterized right upper pole low risk renal lesion. This can be followed up with elective MR of the kidneys in 6 months. 3. Presumed benign hepatic hemangiomata.. This can be simultaneously evaluated at the time of above recommended MRI. Electronically Signed: Kanchan Bar MD at 19:25 EDT Tel , Service support , Physical Exam Const alert, oriented x3 and no apparent distress HEENT normocephalic, head/scalp atraumatic and hearing grossly normal bilaterally Eyes General Eye: normal appearance of both eyes Neck supple General: trachea midline Chest Chest: symmetrical chest wall rise Resp normal respiratory effort, normal air movement, no retractions and no use of accessory muscles GI soft to palpation and non-distended; Negative for non-tender Palpation: tender RUQ Skin no rashes or lesions noted, no wounds, skin turgor normal, no jaundice, no petechiae and no mottling Neuro oriented x3, CN's II-XII intact bilaterally and moves all extremities Psych mental status grossly normal, thought process normal, cooperative and affect no rmal Assessment & Plan Assessment/Plan (1) Pyelonephritis: (2) Renal abscess, right: (3) Intractable nausea and vomiting: PLAN: continue antibiotics at least 2 weeks will follow up in the office for complete urinary tract infection evaluation will plan for MRI in 3-6 months as recommended
--- NOTE | 2021-01-02 11:00 | CASEMGMT ---
RN KAYLEIGH Face to Face with patient for initial transition planning/care coordination assessment. RN CM introduced self and role at [facility]. Patient lying in bed, alert and oriented. Patient willing to participate in assessment and is able to answer all questions appropriately. Care providers, pharmacy, and demographics verified. Patient wishes to discharge home, denies need for home health at this time. Patient states he has no further needs or concerns at this time. CM to follow for discharge planning needs that may arise. PCP: Esther Specialists: none Preferred Pharmacy: [facility] Insurance:[employer] Prescription Benefit: yes Living Will/HPOA: none LNOK: Fiance, parents Living Arrangements: Patient lives with fiance and children in a single story home with no steps to enter. Patient states she is independent at home. Transportation: self/fiance DME/HHC: Patient denies previous HHC or SNF. Patient denies need for DME. Disposition Plan: Patient to discharge home with family support and follow-up plans in place. Emma LAND, RN, CM
[2021-01-02] MEDS: 0.9% Normal Saline 1,000 ML 75 ML IV (11:26)
--- NOTE | 2021-01-02 11:46 | PN.HOSP_ITS ---
Subjective Subjective Follow up on acute E. coli UTI/pyelonephritis: Patient was seen and examined. She is less nauseous. Is able to eat something. She said that her nausea is worse in the morning. Objective Data Objective Data Vital Signs: Vital Signs Temp Pulse Resp BP Pulse Ox 98.8 F 76 16 119/62 96 01/02/21 08:03 01/02/21 08:03 01/02/21 08:03 01/02/21 08:03 01/02/21 08:03 Oxygen Delivery Method Room Air Weight: 66.7 kg Body Mass Index (BMI) 26.9 Intake & Output: Intake and Output for Last 24 Hours 12/31/20 01/01/21 01/02/21 23:59 23:59 23:59 Intake Total 1050 / 1450 2666.25 / 2666.25 988.75 / 988.75 Balance 1050 / 1450 2666.25 / 2666.25 988.75 / 988.75 Lab / Micro Data Result Diagrams: 01/02/21 04:55 01/02/21 04:55 Labs: Laboratory Results - last 24 hr 01/02/21 04:55: WBC 4.4, RBC 3.40 L, Hgb 10.1 L, Hct 31.9 L, MCV 93.8, MCH 29.7, MCHC 31.7 L, RDW Std Deviation 44.6 H, RDW Coeff of Luma 13.0, Plt Count 162, MPV 10.7, Immature Gran % (Auto) 0.500, Neut % (Auto) 59.5, Lymph % (Auto) 27.3, [place] % (Auto) 8.6, Eos % (Auto) 3.4, Baso % (Auto) 0.7, Absolute Neuts (auto) 2.6, Absolute Lymphs (auto) 1.21, Nucleated RBC % 0 01/02/21 04:55: Sodium 141, Potassium 3.6, Chloride 106, Carbon Dioxide 28.0, Anion Gap 7, BUN 6 L, Creatinine 0.38 L, Estim Creat Clear Calc 164.99, Est GFR (MDRD) Af Amer 246, Est GFR (MDRD) Non-Af 203, BUN/Creatinine Ratio 15.6, Glucose 94, Calcium 8.1 L Radiography Diagnostic Testing: Radiology Impression Abdomen/Pelvis CT 01/01/21 17:05 IMPRESSION: 1. No renal abscess. No pyelonephritis. 2. Incompletely characterized right upper pole low risk renal lesion. This can be followed up with elective MR of the kidneys in 6 months. 3. Presumed benign hepatic hemangiomata.. This can be simultaneously evaluated at the time of above recommended MRI. Electronically Signed: Kanchan Bar MD at 19:25 EDT Tel , Service support , Physical Exam Narrative General: Alert, Oriented x3, Cooperative, No apparent distress HEENT: Atraumatic, PERRLA, EOMI, Normocephalic Oral: Moist Mucosa Neck: Supple Lungs:Diminished air entry Cardiovascular: Regular rate, Regular Rhythm, Normal S1, Normal S2, No murmurs Abdomen: Bowel Sounds Present, Soft, tenderness over the right flank and lower quadrant, Non-Distended, No Hepato-splenomegaly Extremities: No edema Assessment & Plan Assessment/Plan (1) Renal abscess, right: (2) Pyelonephritis: (3) Intractable nausea and vomiting: PLAN: 1. Acute E. coli UTI/acute right pyelonephritis Acute right renal abscess ruled out with repeat CT of the abdomen and pelvis Continue on IV ceftriaxone Would discontinue Dilaudid; switch to Tylenol versus ibuprofen as needed in view of history of polysubstance use Discontinue IV fluids Appreciate urology consult; outpatient follow-up pending 2. Abnormal right renal mass, will follow up with repeat MRI of the kidneys in the outpatient 3. Acute intractable nausea and vomiting, resolved 4. Abnormal liver lesion, likely secondary to benign hepatic hemangiomata Recommend outpatient follow-up with MR 5. Rest of chronic medical conditions including history of polysubstance abuse, anxiety and depression remains stable Charges/Coding Visit Charges Inpatient E&M: 53445 Subs Hosp L2
[2021-01-02] MEDS: Ibuprofen 400 MG Tablet PO ×2 (12:16→17:58)
[2021-01-02] MEDS: Acetaminophen 500 MG Tablet 1000 MG PO ×2 (14:00→20:44)
[2021-01-02 15:24] VITALS: BP 102/63; PULSE 64; RESP 16; TEMP 36.6; O2SAT 98
[2021-01-02 20:03] VITALS: BP 94/78; PULSE 66; RESP 16; TEMP 36.6; O2SAT 99
[2021-01-03 00:19] VITALS: BP 103/68; PULSE 64; RESP 18; TEMP 36.6; O2SAT 100
[2021-01-03] MEDS: Ibuprofen 400 MG Tablet PO ×2 (00:22→06:06)
[2021-01-03] MEDS: Acetaminophen 500 MG Tablet 1000 MG PO (05:13)
[2021-01-03 06:06] VITALS: BP 107/69; PULSE 63; RESP 18; TEMP 36.1; O2SAT 100
[2021-01-03 06:32] LABS: Absolute Lymphocyte Count 1.28 X10^3/uL (0.83-4.51); Absolute Neutrophil Count 1.7 X10^3/uL (2.0-7.7); Basophil# 0.02 X10^3/uL; Basophil% 0.6 % (0-1); Eosinophils% 5.6 % (0-5); Hematocrit 31.4 % (37-47); Hemoglobin 10.1 g/dL (12.0-15.0); Lymphocyte # 1.28 X10^3/ul (0.83-4.51); Lymphocyte % 36.1 % (19-41); Mean Corp Hgb Conc 32.2 g/dL (32-36); Mean Corpuscular Hgb 29.6 pg (27.0-32.0); Mean Corpuscular Volume 92.1 fL (81-99); Mean Platelet Vol. 10.1 fl (6.2-12.0); Monocyte% 8.5 % (0-10); NRBC Flagged by Analyzer 0 % (0-5); Neutrophil # 1.74 X10^3/uL (2.7-7.7); Neutrophil % 48.9 % (47-70); Platelet Count 163 K/mm3 (150-450); RBC Distribution Width CV 12.7 % (11.6-14.6); RBC Distribution Width SD 42.8 fl (35.1-43.9); Red Blood Count 3.41 M/mm3 (4.2-5.4); White Blood Count 3.6 K/mm3 (4.4-11.0)
[2021-01-03 07:04] LABS: ALB/GLOB Ratio 0.7 RATIO (0.9-2.4); AST(SGOT) 26 U/L (15-37); Alanine Aminotransfer ALT/SGPT 15 U/L (13-56); Albumin, Serum 2.3 g/dL (3.2-5.0); Alkaline Phosphatase 62 U/L (45-117); Anion Gap 6 (5-15); BUN 12 mg/dL (7-18); BUN/Creat Ratio 27.9 RATIO (10-20); Calcium,Total 8.3 mg/dL (8.5-10.1); Chloride 105 mmol/L (98-107); Creatinine, Serum 0.43 mg/dL (0.55-1.02); EST Glomerular Filtration Rate 179 mL/min (>60); Est Glom Filt Rate - Afr Amer 216 mL/min (>60); Globulin 3.4 g/dL (2.2-4.2); Glucose 94 mg/dL (74-106); Potassium 3.7 mmol/L (3.5-5.1); Protein, Total 5.7 g/dL (6.4-8.2); Sodium Level 141 mmol/L (136-145)
--- NOTE | 2021-01-03 07:18 | PCM.DC ---
Discharge Instructions Diet Discharge Diet: No restrictions Activity Discharge Activity: Return to Normal Activity Follow Up Care Test Results: Test results from this visit will be discussed in further detail at your follow-up appointment, if applicable. Discharge Plan Admission Admit Date/Time: 12/31/20 18:36 Primary Reason for Your Visit: Acute E. coli UTI Attending Provider: Melissa Sevilla Primary Care Provider: Kitty Santana Consulting Providers: Carola Fuchs Instructions Additional Instructions / Restrictions: Complete your antibiotics. Keep yourself hydrated. Follow-up with urology within 1 to 2 weeks Discharge Orders/Prescriptions Prescriptions: New levofloxacin 500 mg tablet 500 mg PO DAILY 4 Days Qty: 4 RF: 0 Discontinued cefdinir 300 mg capsule 300 mg PO BID Qty: 20 RF: 0 ondansetron HCl [Zofran] 4 mg tablet 4 mg PO Q8H Qty: 7 RF: 0 Referrals / Follow Up: Kitty Santana MD [Primary Care Provider] - Within 2 Weeks Carola Fuchs MD [STAFF PHYSICIAN] - Within 2 Weeks (within 1-2 weeks) Disposition Disposition (needs filled in before D/C Order can be placed): Home, Self Care
--- NOTE | 2021-01-03 09:07 | DS.PCM_ITS ---
Providers Date of Admission: 12/31/20 Date of Discharge: 01/03/21 Primary Care Physician: Dr. Kitty Santana MD Consultations 12/31/20 19:28 Consult: Urology Routine Consulting Provider: Carola Fuchs Reason for Consult: Renal Abscess EMERGENT Consult: No MD Notified: Yes Date Notified: 12/31/20 Time Notified: 18:38 Method of Notification: Verbal Reason For Visit: RENAL ABSCESS/PYELONEPHRITIS Diagnosis Discharge Diagnosis (1) Renal abscess, right: Status: Ruled-out Code(s): N15.1 - Renal and perinephric abscess (2) Pyelonephritis: Status: Acute Code(s): N12 - Tubulo-interstitial nephritis, not specified as acute or chronic (3) Intractable nausea and vomiting: Status: Acute Code(s): R11.2 - Nausea with vomiting, unspecified (4) Kidney mass: Status: Acute Code(s): N28.89 - Other specified disorders of kidney and ureter (5) Liver hemangioma: Status: Acute Code(s): D18.03 - Hemangioma of intra-abdominal structures Medications at Discharge Home Medications levofloxacin 500 mg PO DAILY 4 Days #4 tab 01/03/21 Hospital Course Operations None Procedures None Summary of Care Provided Minutes Spent on Discharge: 45 Hospital Course: 35-year-old female who presents to the emergency room with worsening right flank pain. She complains of urinary symptoms ongoing for about a week. She was seen in the urgent care a couple of days prior to admission. Urinalysis was positive for acute UTI and urine cultures grew E. coli. She was seen in the emergency department and started on cefdinir and Zofran. She presented to the emergency department with progressive worsening right flank pain with nausea and vomiting. Is hemodynamically stable with fever. CT of the abdomen and pelvis showed acute lobe low-density lesion. Urology was consulted. CT of the abdomen and pelvis with and without contrast ruled out acute renal abscess or pyelonephritis. It showed an incompletely characterized right upper pole renal lesion. It was recommended to be followed up with an MRI of the kidneys in 6 months. Patient had also a presumed benign hepatic hemangioma other. Patient's urine culture sent this hospital stay grew E. coli that was pansensitive. She was managed on IV ceftriaxone and switched to IV Levaquin at discharge since she was previously on cefdinir prior to admission. Patient will complete a total of 7 days of antibiotics. She will follow up with urology in the outpatient. Physical Exam Narrative General: Alert, Oriented x3, Cooperative, No apparent distress HEENT: Atraumatic, PERRLA, EOMI, Normocephalic Oral: Moist Mucosa Neck: Supple Lungs:Diminished air entry Cardiovascular: Regular rate, Regular Rhythm, Normal S1, Normal S2, No murmurs Abdomen: Bowel Sounds Present, Soft, improved tenderness over the right flank and lower quadrant, non-Distended, No Hepato-splenomegaly Extremities: No edema Weight / BMI Weight Weight: 66.7 kg Body Mass Index (BMI) 26.9 ABG / Lab / Microbiology Data Result Diagrams: 01/03/21 06:06 01/03/21 06:06 Laboratory: Laboratory Results - last 24 hr 01/03/21 06:06: WBC 3.6 L, RBC 3.41 L, Hgb 10.1 L, Hct 31.4 L, MCV 92.1, MCH 29.6, MCHC 32.2, RDW Std Deviation 42.8, RDW Coeff of Luma 12.7, Plt Count 163, MPV 10.1, Immature Gran % (Auto) 0.300, Neut % (Auto) 48.9, Lymph % (Auto) 36.1, [place] % (Auto) 8.5, Eos % (Auto) 5.6 H, Baso % (Auto) 0.6, Absolute Neuts (auto) 1.7 L, Absolute Lymphs (auto) 1.28, Nucleated RBC % 0 01/03/21 06:06: Sodium 141, Potassium 3.7, Chloride 105, Carbon Dioxide 30.0, Anion Gap 6, BUN 12, Creatinine 0.43 L, Estim Creat Clear Calc 145.80, Est GFR (MDRD) Af Amer 216, Est GFR (MDRD) Non-Af 179, BUN/Creatinine Ratio 27.9 H, Glucose 94, Calcium 8.3 L, Total Bilirubin 0.10 L, AST 26, ALT 15, Alkaline Phosphatase 62, Total Protein 5.7 L, Albumin 2.3 L, Globulin 3.4, Albumin/Globulin Ratio 0.7 L D/C Instructions Discharge Diet: No restrictions Meaningful Use Info Meaningful Use Diagnoses (Choose all that apply): None applicable Discharge Plan Admission Admit Date/Time: 12/31/20 18:36 Primary Reason for Your Visit: Acute E. coli UTI Attending Provider: Melissa Sevilla Primary Care Provider: Kitty Santana Consulting Providers: Carola Fuchs Instructions Additional Instructions / Restrictions: Complete your antibiotics. Keep yourself hydrated. Follow-up with urology within 1 to 2 weeks Discharge Orders/Prescriptions Prescriptions: New levofloxacin 500 mg tablet 500 mg PO DAILY 4 Days Qty: 4 RF: 0 Discontinued cefdinir 300 mg capsule 300 mg PO BID Qty: 20 RF: 0 ondansetron HCl [Zofran] 4 mg tablet 4 mg PO Q8H Qty: 7 RF: 0 Referrals / Follow Up: Kitty Santana MD [Primary Care Provider] - Within 2 Weeks Carola Fuchs MD [STAFF PHYSICIAN] - Within 2 Weeks (within 1-2 weeks) Disposition Disposition (needs filled in before D/C Order can be placed): Home, Self Care Charges/Coding Visit Charges Inpatient E&M: 03705 Disch Hosp
== END 2021-01-03 10:20 | disposition home or self-care (01) | DRG 463 ==
LOC: ED 18:06 → MS2 19:06
PROVIDERS: Admitting Provider Internal Medicine; Emergency Provider Emergency Medicine; PCP Internal Medicine; Visit Provider Internal Medicine
DX: N12 Tubulo-interstitial nephritis, not specified as acute or chronic (principal); N15.1 Renal and perinephric abscess; B96.20 Unspecified Escherichia coli [E. coli] as the cause of diseases classified elsewhere; D18.03 Hemangioma of intra-abdominal structures; D64.9 Anemia, unspecified; I10 Essential (primary) hypertension; F32.A Depression, unspecified; F41.9 Anxiety disorder, unspecified; Z87.442 Personal history of urinary calculi; Z79.899 Other long term (current) drug therapy; F17.210 Nicotine dependence, cigarettes, uncomplicated
CPT/HCPCS: 36415; 74177; 74178; 80048; 80053; 81001; 83605; 83735; 84100; 84703; 85025; 87077; 87086; 87088; 87186; 96365; 96375; 99251; 99283; 99284; J7030; Q9967; A4216; G0463; J0696; J2405

== ENCOUNTER → 2021-01-24 12:18 | Outpatient (CLI) | payer MEDICAID, SELFPAY ==
--- NOTE | 2021-01-24 12:24 | RAD_ITS ---
CLINICAL HISTORY: Female, 35 years old. Recurrent UTIs and kidney infection. PROCEDURE: Cystogram. FLUOROSCOPY TIME (if supplied): (2 minutes and 42 seconds) minutes/seconds. 6 images were obtained. 180 mL of contrast installed into the bladder in a retrograde fashion through indwelling FERRARI catheter. The radiologist installed the contrast into the bladder. TECHNIQUE: (All elements of maximal sterile barrier technique followed, including US elements as applicable) The urinary bladder is unremarkable. No evidence of vesicoureteral reflux. No postvoid residual. RAD/Cystography min 3 Views IMPRESSION: No evidence of vesicoureteral reflux. Electronically Signed: Alejandro Mcdaniel MD at 13:41 EST , Service support ,
== END ==
PROVIDERS: PCP Internal Medicine; Visit Provider Urology
DX: N15.1 Renal and perinephric abscess (principal); N39.0 Urinary tract infection, site not specified
CPT/HCPCS: 51600; 51702; 74430; Q9965

== ENCOUNTER → 2021-03-07 14:26 | Outpatient (CLI) | payer MEDICAID, SELFPAY ==
--- NOTE | 2021-03-07 14:47 | US_ITS ---
STUDY: RENAL ULTRASOUND - COMPLETE REASON FOR EXAM: Female, 35 years old. UTI TECHNIQUE: Ultrasound evaluation of the kidneys was performed with real-time and static quintero-scale imaging. COMPARI SON: 01.01.21 CT FINDINGS: RIGHT KIDNEY: Normal location of the right kidney, which is normal in size. The right kidney measures 10.8 x 5 cm. There is a normal cortex of the right kidney. The renal cortex measures 1.1 cm. There is no right renal mass or cyst. There are no right renal calculi. There is mild hydronephrosis of the right kidney. DISTAL RIGHT URETER: There is non-visualization of the distal right ureter. There is no demonstrated right ureterovesical junction calculus. There is a visualized right ureteral jet. LEFT KIDNEY: Normal location of the left kidney, which is normal in size. The left kidney measures 10.5 x 6.1 cm. There is a normal cortex of the left kidney. The renal cortex measures 1.4 cm. There is no left renal mass or cyst. There are no left renal calculi. There is no left hydronephrosis. DISTAL LEFT URETER: There is non-visualization of the distal left ureter. There is no demonstrated left ureterovesical junction calculus. There is a visualized left ureteral jet. AORTA: There is obscuration of the abdominal aorta by overlying bowel gas I.V.C.: The IVC is obscured. BLADDER: There is a normal wall thickness of the distended urinary bladder. There is no demonstrated mass within the urinary bladder. There are no demonstrated bladder calculi. US/Kidney and Bladder IMPRESSION: There is mild hydronephrosis of the right kidney. Electronically Signed: Rodney Lazaro MD at 15:46 EST , Service support ,
== END ==
PROVIDERS: PCP Internal Medicine; Visit Provider Urology
DX: N39.0 Urinary tract infection, site not specified (principal)
CPT/HCPCS: 76770

== ENCOUNTER 2021-06-12 14:31 | Outpatient (CLI) | payer MEDICAID, SELFPAY ==
--- NOTE | 2021-06-12 14:36 | CT_ITS ---
EXAM: CT ABDOMEN AND PELVIS WITHOUT AND WITH INTRAVENOUS CONTRAST CLINICAL INDICATION: HYDRONEPHROSIS TECHNIQUE: Helically acquired images were obtained of the abdomen and pelvis without and with intravenous contrast. CTDIvol = ( 12.42 ) mGy, DLP = ( 1906.16 ) mGycm This CT exam was performed using one or more of the following dose reduction techniques: automated exposure control, adjustment of the mA and/or kV according to patient size, and/or use of iterative reconstruction technique. This report was created using [employer] report generation technology. CONTRAST: IV 100mL Isovue-300 COMPARISON: None. FINDINGS: LOWER THORAX: Unremarkable. Lung bases are clear. No cardiomegaly. No significant pericardial effusion. ABDOMEN: LIVER: 2.3 cm hypodense ill-defined lesion involving the posterior segment of the right hepatic lobe medially. This is further investigated with liver CT on a nonemergent basis. GALLBLADDER AND BILE DUCTS: Prior cholecystectomy. Expected biliary ectasia. No intra- or extrahepatic biliary ductal dilation. PANCREAS: Unremarkable. No focal cystic or solid mass. SPLEEN: Unremarkable. Normal size without focal cystic or solid mass. ADRENALS: Unremarkable. No nodules. KIDNEYS AND URETERS: Unremarkable. Normal renal size and position. No hydronephrosis. STOMACH AND BOWEL: Fluid within nondistended loops of small bowel and within stomach without bowel wall thickening or surrounding inflammation can be normal or can be seen with gastroenteritis in the right clinical setting. No colitis, diverticulitis or bowel obstruction. PELVIS: APPENDIX: No appendicitis. BLADDER: Unremarkable. REPRODUCTIVE: Surgical clip along the left adnexa. No adnexal masses. ABDOMEN and PELVIS: INTRAPERITONEAL SPACE: Unremarkable. No ascites or other fluid collection. No free air. BONES/JOINTS: Unremarkable. No suspicious lytic or blastic abnormality. SOFT TISSUES: Unremarkable. No discrete abdominal or pelvic wall hernia. VASCULATURE: Unremarkable. Abdominal aorta is non-dilated. LYMPH NODES: Unremarkable. No enlarged lymph nodes. CT/CT Abd/Pelvis W/WO Contrast IMPRESSION: 1. 2.3 cm indeterminate hypodense ill-defined lesion involving the posterior segment of the right hepatic lobe which can be further investigated with liver CT on a nonemergent basis. 2. Possible gastroenteritis. Electronically Signed: Chepe oLpez MD at 21:29 EDT ,
== END 2021-06-12 23:59 | disposition home or self-care (01) ==
PROVIDERS: PCP Internal Medicine; Visit Provider Urology
DX: N13.30 Unspecified hydronephrosis (principal)
CPT/HCPCS: 74178; Q9967

== ENCOUNTER 2022-01-27 15:23 | Emergency (ER) | payer MEDICAID, SELFPAY ==
[2022-01-27 15:24] VITALS: BP 110/75; PULSE 95; RESP 18; TEMP 37; O2SAT 99; BMI 31.6
[2022-01-27 15:59] LABS: Absolute Lymphocyte Count 0.45 X10^3/uL (0.83-4.51); Absolute Neutrophil Count 11.7 X10^3/uL (2.0-7.7); Basophil# 0.04 X10^3/uL; Basophil% 0.3 % (0-1); Eosinophil# 0.01 X10^3/uL; Eosinophils% 0.1 % (0-5); Hematocrit 39.1 % (37-47); Hemoglobin 12.9 g/dL (12.0-15.0); Lymphocyte # 0.45 X10^3/ul (0.83-4.51); Lymphocyte % 3.5 % (19-41); Mean Corpuscular Hgb 29.9 pg (27.0-32.0); Mean Corpuscular Volume 90.5 fL (81-99); Mean Platelet Vol. 10.5 fl (6.2-12.0); Monocyte# 0.56 X10^3/uL; Monocyte% 4.4 % (0-10); NRBC Flagged by Analyzer 0 % (0-5); Neutrophil # 11.68 X10^3/uL (2.7-7.7); Neutrophil % 91.2 % (47-70); POSITIVE DIFFERENTIAL YES; Platelet Count 179 K/mm3 (150-450); RBC Distribution Width CV 12.1 % (11.6-14.6); RBC Distribution Width SD 40.1 fl (35.1-43.9); Red Blood Count 4.32 M/mm3 (4.2-5.4); White Blood Count 12.8 K/mm3 (4.4-11.0)
[2022-01-27 16:02] LABS: Differential Indicated SCAN CRITERIA MET
[2022-01-27] MEDS: Ondansetron 4 MG/2 ML Vial IV (16:03)
[2022-01-27] MEDS: Morphine 4 MG/ML Syringe IV (16:03)
[2022-01-27] MEDS: 0.9% Normal Saline 1,000 ML 999 ML IV (16:04)
[2022-01-27 16:18] LABS: Internal QC Validated? YES +Cl - CLEAR BKGD; Pregnancy, Serum, hCG Quali. NEGATIVE Negative
[2022-01-27 16:20] LABS: AST(SGOT) 49 U/L (15-37); Alanine Aminotransfer ALT/SGPT 25 U/L (13-56); Albumin, Serum 3.7 g/dL (3.2-5.0); Alkaline Phosphatase 80 U/L (45-117); Anion Gap 9 (5-15); BUN 10 mg/dL (7-18); BUN/Creat Ratio 15.1 RATIO (10-20); Calcium,Total 8.8 mg/dL (8.5-10.1); Chloride 104 mmol/L (98-107); Creatinine, Serum 0.66 mg/dL (0.55-1.02); EST Glomerular Filtration Rate 108 mL/min (>60); Est Glom Filt Rate - Afr Amer 130 mL/min (>60); Globulin 3.7 g/dL (2.2-4.2); Glucose 108 mg/dL (74-106); Potassium 3.6 mmol/L (3.5-5.1); Protein, Total 7.4 g/dL (6.4-8.2); Sodium Level 137 mmol/L (136-145)
[2022-01-27 16:41] LABS: Color, Urine Yellow (Yellow); Glucose, Dipstick Normal (Normal); Leukocyte Esterase-Dipstick 500 /ul (Negative); Nitrite-Dipstick Negative (Negative); Occult Blood-Urine 25 /ul (Negative); Protein-Dipstick 30 mg/dl (Negative); Urine Bilirubin Dipstick Negative (Negative); Urine Clarity Clear (Clear); Urine Urobilinogen Normal (Normal)
[2022-01-27 16:42] LABS: Differential Comment SCANNED
[2022-01-27 16:55] LABS: Ketone-Dipstick 150 mg/dl (Negative)
[2022-01-27 16:57] LABS: Squamous Epithelial Cells - UA 25-50 SEEN /hpf (5-10)
[2022-01-27 16:58] LABS: Red Blood Cells-Urine 5-10 SEEN /hpf (0-5); White Blood Cells 25-50 SEEN /hpf (0-5)
[2022-01-27 16:59] LABS: Bacteria 1+ /hpf (None Seen); Mucous, Urine 3+ /hpf (<or=2+)
--- NOTE | 2022-01-27 17:06 | CT_ITS ---
INDICATION: right flank pain. PRIOR CHOLECYSTECTOMY EXAMINATION: CT Abdomen And Pelvis W/O Contrast Injection TECHNIQUE: Helically acquired images were obtained of the abdomen and pelvis without the use of IV contrast. A radiation dose optimization technique was used for this scan. Oral contrast: None. COMPARISON: 06/12/2021 FINDINGS: Evaluation of the solid organs and vascular structures is limited without intravenous contrast. Visualized lung bases: Left basilar atelectasis. Liver: Unremarkable Gallbladder: Surgically absent. Spleen: Unremarkable Pancreas: Unremarkable Adrenal Glands: Unremarkable Kidneys: Unremarkable Vasculature: Unremarkable GI Tract: Few short segment loops of small bowel demonstrate surrounding mesenteric fat stranding. Lymphadenopathy: None Peritoneum: No ascites. Bladder: Unremarkable Reproductive organs: Surgical clip in the left adnexa. Bones/Soft tissues: No suspicious osseous or soft tissue lesions CT/Abdomen/Pelvis without Cont IMPRESSION: No renal/ureteral stones or hydronephrosis. Findings could represent acute enteritis in the correct clinical setting. Electronically Signed: Brayan Nuno MD at 17:57 EST ,
[2022-01-27] MEDS: proMETHazine 25 MG/ML Syringe 12.5 MG IM (17:42)
--- NOTE | 2022-01-27 18:26 | EDS_ITS ---
HPI HPI - Female History of Present Illness Chief Complaint: Flank Pain Narrative Narrative: Patient presenting with right flank pain. She states he has a history of UTIs and pyelonephritis. She states he gets admitted frequently for this because of intractable nausea and. She states she sees Dr. Fuchs from urology. She does describe urinary symptoms and states that she has no history of kidney stones. She does have nausea and vomiting. No fevers. No diarrhea or constipation. Patient also notes that her daughter had strep throat within the last couple of weeks and now she has a sore throat. She denies difficulty swallowing. [facility] Medical History Anxiety and depression Heart murmur History of kidney stones History of seizures History of substance abuse Home Medications levofloxacin 500 mg tablet 500 mg PO DAILY 4 days #4 tabs 01/03/21 [Rx Last Taken Unknown] ondansetron 4 mg disintegrating tablet 4 mg PO Q8H PRN nausea and vomiting #14 tabs 01/27/22 [Rx Last Taken Unknown] sulfamethoxazole 800 mg-trimethoprim 160 mg tablet (Bactrim DS) 1 tab PO BID #24 tabs 01/27/22 [Rx Last Taken Unknown] Allergy/AdvReac Type Severity Reaction Status Date / Time No Known Allergies Allergy Verified 01/27/22 15:26 Family History Other Anxiety Depression Hypertension Seizures Surgical History History of cholecystectomy Social History Smoking Status: Current every day smoker tobacco type: e-cigarettes alcohol intake: never substance use type: former substance user what type of physical activity do you participate in: none ROS ROS ED Constitutional Constitutional ED: Denies chills or fever(s) Eyes Eyes: Denies change in vision or diplopia ENT ENT ED: Reports sore throat; Denies rhinorrhea Cardiovascular Cardiovascular: Denies chest pain or palpitations Respiratory/Chest Respiratory/Chest: Denies cough or dyspnea Gastrointestinal Gastrointestinal: Reports abdominal pain, nausea and vomiting Genitourinary Genitourinary ED: Reports dysuria and hematuria Musculoskeletal Musculoskeletal: Denies arthralgias or myalgias Integumentary Denies abscess Neurologic Neurologic: Denies headache(s) or paresthesias Psychiatric Psychiatric: Denies anxiety or depression EXAM Physical Exam Const Vital Signs: 01/27/22 15:24 01/27/22 15:31 01/27/22 19:07 Temperature 98.6 F Temperature Source Temporal Pulse Rate 95 83 Respiratory Rate 18 16 Respiratory Pattern Normal Blood Pressure 110/75 99/60 Blood Pressure Mean 86 Pulse Ox 99 97 Oxygen Delivery Method Room Air Positive well nourished General Appearance ED: NAD HEENT Reports TM's clear and moist mucous membranes Tympanic Membrane ED: Yes TM's clear Eyes PERRL and EOMs intact bilaterally Chest Wall inspection of chest normal Cardio regular rate and regular rhythm GI normal to inspection, nondistended, normoactive bowel sounds Back/Spine General Back: CVA tenderness right Neuro oriented x3 and CN's II-XII intact bilaterally Psych mental status grossly normal Skin no rashes or lesions noted MDM MDM MDM Narrative Medical decision making narrative: Blood work is obtained. CBC shows slight leukocytosis 12.8. Hemoglobin hematocrit are normal. Platelets within normal limits. Renal function electrolytes are normal. LFTs within normal limits. Serum hCG is negative. Patient was medicated with morphine, Zofran as well as a liter of normal saline. On reevaluation she still has some nausea and she is given Phenergan. Urinalysis shows urine ketones of 150. Occult blood 25. Urine nitrites are negative. There is 500 leukocyte esterase with 25-50 white blood cells however there is also 25-50 squamous epithelial cells. 1+ bacteria. This does appear to be contaminated and sent for culture. We will obtain a CT of the abdomen pelvis to rule out kidney stone versus pyelonephritis. CBC shows slight leukocytosis 12.8, hemoglobin hematocrit are stable. Platelets are normal. Renal function electrolytes within normal limits. LFTs are normal. CT of the abdomen pelvis is consistent with enteritis. There is no evidence of acute pyelonephritis. The patient does state that she has urinary symptoms so I will treat her for this and since she is having some right-sided pain I will treat her for pyelonephritis. She is started on Bactrim with first dose in the ED. She is given Zofran for home. I do not believe she needs to be admitted currently. She is amenable to this and wants to go home. Impression: 1. Gastroenteritis 2. Pyelonephritis 3. Leukocytosis 4. Nausea/vomiting Lab Data Labs: Laboratory Results - last 24 hr 01/27/22 01/27/22 01/27/22 15:46 15:46 15:46 WBC 12.8 H RBC 4.32 Hgb 12.9 Hct 39.1 MCV 90.5 MCH 29.9 MCHC 33.0 RDW Std Deviation 40.1 RDW Coeff of Luma 12.1 Plt Count 179 MPV 10.5 Immature Gran % (Auto) 0.500 Neut % (Auto) 91.2 H Lymph % (Auto) 3.5 L [place] % (Auto) 4.4 Eos % (Auto) 0.1 Baso % (Auto) 0.3 Absolute Neuts (auto) 11.7 H Absolute Lymphs (auto) 0.45 L Nucleated RBC % 0 Differential Comment SCANNED Sodium 137 Potassium 3.6 Chloride 104 Carbon Dioxide 24.0 Anion Gap 9 BUN 10 Creatinine 0.66 Estim Creat Clear Calc 94.10 Est GFR (MDRD) Af Amer 130 Est GFR (MDRD) Non-Af 108 BUN/Creatinine Ratio 15.1 Glucose 108 H Calcium 8.8 Total Bilirubin 0.60 AST 49 H ALT 25 Alkaline Phosphatase 80 Total Protein 7.4 Albumin 3.7 Globulin 3.7 Albumin/Globulin Ratio 1.0 Serum , Qual NEGATIVE Urine Color Urine Clarity Urine pH Ur Specific [place] Urine Protein Urine Glucose (UA) Urine Ketones Urine Occult Blood Urine Nitrite Urine Bilirubin Urine Urobilinogen Ur Leukocyte Esterase Urine RBC Urine WBC Ur Squamous Epith Cells Urine Bacteria Urine Mucus 01/27/22 16:29 WBC RBC Hgb Hct MCV MCH MCHC RDW Std Deviation RDW Coeff of [place] Plt Count MPV Immature Gran % (Auto) Neut % (Auto) Lymph % (Auto) [place] % (Auto) Eos % (Auto) Baso % (Auto) Absolute Neuts (auto) Absolute Lymphs (auto) Nucleated RBC % Differential Comment Sodium Potassium Chloride Carbon Dioxide Anion Gap BUN Creatinine Estim Creat Clear Calc Est GFR (MDRD) Af Amer Est GFR (MDRD) Non-Af BUN/Creatinine Ratio Glucose Calcium Total Bilirubin AST ALT Alkaline Phosphatase Total Protein Albumin Globulin Albumin/Globulin Ratio Serum , Qual Urine Color Yellow Urine Clarity Clear Urine pH 5.0 Ur Specific [place] 1.020 Urine Protein 30 H Urine Glucose (UA) Normal Urine Ketones 150 A* Urine Occult Blood 25 H Urine Nitrite Negative Urine Bilirubin Negative Urine Urobilinogen Normal Ur Leukocyte Esterase 500 H Urine RBC 5-10 SEEN Urine WBC 25-50 SEEN Ur Squamous Epith Cells 25-50 SEEN Urine Bacteria 1+ Urine Mucus 3+ Radiography Diagnostic Testing: Clinical Impression(s) from Imaging Studies Abdomen/Pelvis CT 01/27/22 17:06 IMPRESSION: No renal/ureteral stones or hydronephrosis. Findings could represent acute enteritis in the correct clinical setting. Electronically Signed: Brayan Nuno MD at 17:57 EST , Discharge Plan Triage Chief Complaint: Flank Pain ED Provider: Willi Aguirre Dx/Rx/DC Orders Instructions: ED Pyelonephritis, Female (Adult), ED Gastroenteritis, Viral (Adult) Prescriptions: New ondansetron 4 mg tablet,disintegrating 4 mg PO Q8H PRN (Reason: nausea and vomiting) Qty: 14 0RF sulfamethoxazole-trimethoprim [Bactrim DS] 800-160 mg tablet 1 tab PO BID Qty: 24 0RF No Action levofloxacin 500 mg tablet 500 mg PO DAILY 4 Days Qty: 4 0RF Primary Care Provider: Care Physician,No Primary Referrals: Carola Fuchs MD [Med Staff - Active Staff] - 3-5 Days Care Physician,No Primary [Primary Care Provider] - Disposition Disposition: Home, Self Care
[2022-01-27 19:07] VITALS: BP 99/60; PULSE 83; RESP 16; O2SAT 97
[2022-01-27] MEDS: Smz/Tmp Ds Tablet 1 TABLET PO (19:10)
== END 2022-01-27 19:11 | disposition home or self-care (01) ==
PROVIDERS: Emergency Provider Student in an Organized Health Care Education/Training Program; Visit Provider Student in an Organized Health Care Education/Training Program
DX: N12 Tubulo-interstitial nephritis, not specified as acute or chronic (principal); D72.829 Elevated white blood cell count, unspecified; K52.9 Noninfective gastroenteritis and colitis, unspecified; J02.9 Acute pharyngitis, unspecified; R11.2 Nausea with vomiting, unspecified; Z87.440 Personal history of urinary (tract) infections; F17.210 Nicotine dependence, cigarettes, uncomplicated; Z90.49 Acquired absence of other specified parts of digestive tract
CPT/HCPCS: 74176; 80053; 81001; 84703; 85025; 87086; 87088; 87880; 99285; J7030; A4216; J2405